=== PATIENT | female | born 1955 | race Caucasian/White ===

== ENCOUNTER 2019-07-19 08:39 | Inpatient (IN) | payer OTHER ==
[~2019-07-19] VITALS: Ht 157.5 cm; Wt 104.4 kg
[2019-07-19 09:00] LABS: BASOPHILS 0.1 % (0-2); EOSINOPHILS 0 % (0-7); HEMATOCRIT 47.8 % (36.0-48.0); HEMOGLOBIN 15.8 g/dL (12-16); IMMATURE GRANULOCYTES 0.4 % (0-5); LYMPHOCYTES 2.7 % (15-50); MCH 30.2 pg (26.0-34.0); MCHC 33.1 g/dL (31.0-37.0); MCV 91.2 fL (80.0-100.0); MEAN PLATELET VOLUME 9.9 fL (7.4-10.4); MONOCYTES 5.7 % (2-11); NEUTROPHILS 91.1 % (40-80); PLATELET COUNT 230 10x3/uL (130-400); RBC 5.24 10x6/uL (4.00-5.40); RDW 12.8 % (11.5-14.5); WBC 17.5 10x3/uL (4.8-10.8)
[2019-07-19 09:36] LABS: ALKALINE PHOSPHATASE 140 U/L (46-116); ALT (SGPT) 22 U/L (10-68); AMYLASE - SERUM 19 U/L (25-115); BILIRUBIN - TOTAL 0.66 mg/dL (0.2-1.3); CALC OSMOLALITY 293 mosm/kg (275-300); CALCIUM 10.5 mg/dL (8.5-10.1); CARBON DIOXIDE 11.8 mmol/L (21.0-32.0); CHLORIDE - SERUM 94 mmol/L (98-107); CREATININE - SERUM 1.2 mg/dL (0.6-1.3); LIPASE 55 U/L (73-393); POTASSIUM - SERUM 4.7 mmol/L (3.5-5.1); PROTEIN - SERUM 10.2 g/dL (6.4-8.2); SODIUM 135 mmol/L (136-145); TROPONIN-I < 0.017 ng/mL (0.000-0.060); UREA NITROGEN 21 mg/dL (7-18); eGFR NON AFRICAN AMERICAN 48 mL/min (90-120)
[2019-07-19 09:40] LABS: GLUCOSE 475 mg/dL (74-106)
--- NOTE | 2019-07-19 09:40 | NUR ---
CRITICAL LAB: GLUCOSE 479 MG/DL DR WATSON NOTIFIED
[2019-07-19 11:14] LABS: APPEARANCE CLEAR (CLEAR); BILIRUBIN NEGATIVE (NEGATIVE); COLOR YELLOW (YELLOW); GLUCOSE 1000 mg/dL (NEGATIVE); KETONE LARGE mg/dL (NEGATIVE); NITRITE NEGATIVE (NEGATIVE); PROTEIN 1+ mg/dL (NEGATIVE); RED CELLS - URINE 0-5 /hpf (0-5); SPECIFIC GRAVITY 1.025 (1.005-1.020); UROBILINOGEN NORMAL (NORMAL); WHITE CELLS - URINE RARE /hpf (NEGATIVE)
[2019-07-19 11:15] LABS: BACTERIA FEW /hpf (NEGATIVE); EPITHELIAL CELLS 0-5 /hpf (0-5)
--- NOTE | 2019-07-19 15:00 | MORECARE ---
CASE MANAGEMENT DISCHARGE SUMMARY PATIENT: ESTELA HILLIARD UNIT: [id number] ADM DATE: 07/19/19 AGE: 63 : 55 SEX: F ROOM/BED: D.2314 AUTHOR: BHUPINDER FERNANDES PHYSICIAN: REFERRING PHYSICIAN: KHAI ARREOLA MD DATE OF SERVICE: 07/19/19 Discharge Plan Patient Name: ESTELA HILLIARD Facility: [facility]:[place] : 1955 Planned Disposition: Anticipated Discharge Date: Discharge Date: Expected LOS: Initial Reviewer: [email or web address] Initial Review Date: 07/19/2019 Generated: 07/19/19 4:00 pm Comments DCP- Discharge Planning Updated by [email or web address]: Coni Coombs on 07/19/19 1:[address] CM met with patient to discuss initial discharge planning. Patient is in agreement to proceed with the assessment with her friend, Hina Camacho present. Verified patient's address and telephone number. Patient is alert/oriented, although drowsy. Stairs/steps: 6, no rails. PCP: Cristal to get established with Dr. Martinez. Pharmacy: [facility]. Diabetic test strips from [facility]. Patient states they have been able to obtain all of their prescribed medications. Patient lives with alone, but will discharge to her friend's home @[address], [place]. HHS: No. DME: No. Patient gives permission to speak with friend. Emergency contact: Hina Camacho [phone]. Patient is Independent with all ADL's, medication management. CM discussed the availability of HH, Rehab, DME services. Patient denies the need for additional services at this time and feels safe discharging to friend's house. Patient denies being hospitalized within the past 30 days, but has had 2 ER visits. Patient denies the use of community resources ASSISTED LIVING COORDINATOR. Transportation at time of discharge: Hina Camacho. Patient Name: ESTELA HILLIARD Page [id number] at 1500 All edits/amendments must be made on the electronic document DICTATION DATE: 07/19/19 1500 FINE ARTS TEACHER: DM 07/19/19 1500 RPT#: [id number] DC DATE: STATUS: ADM IN [facility] [address] [place] [address] END OF REPORT
--- NOTE | 2019-07-19 15:04 | NUR ---
FSBS 456
[2019-07-19 15:50] VITALS: BP 188/92; BMI 40.1
[2019-07-19] MEDS ORDERED: METFORMIN HCL500 M1 PO (15:59)
[2019-07-19 17:00] VITALS: BP 147/85
[2019-07-19 17:37] LABS: ANION GAP 35.5 mmol/L (8-16); CALCIUM 10.4 mg/dL (8.5-10.1); CREATININE - SERUM 1.3 mg/dL (0.6-1.3); MAGNESIUM - SERUM 2.5 mg/dL (1.8-2.4); POTASSIUM - SERUM 4.5 mmol/L (3.5-5.1)
[2019-07-19 18:00] VITALS: BP 152/79
--- NOTE | 2019-07-19 18:01 | NUR ---
PT ASSISTED TO BEDSIDE COMMODE. 600 CC VOID NOTED BLADDER SCAN ADM 84 CC NOTED.
--- NOTE | 2019-07-19 18:36 | NUR ---
PATRIA-- [phone]. TO BE CALLED IN CASE OF EMERGENCY
[2019-07-19 21:40] LABS: CALCIUM 9.4 mg/dL (8.5-10.1); MAGNESIUM - SERUM 2.2 mg/dL (1.8-2.4)
[2019-07-19 21:43] LABS: ANION GAP 24.5 mmol/L (8-16); POTASSIUM - SERUM 3.5 mmol/L (3.5-5.1)
[2019-07-19 23:00] VITALS: BP 152/88
[2019-07-20] VITALS (23 sets, daily range): BP systolic 132–234; BP diastolic 70–139; Ht 157.5 cm; Wt 104.4 kg
[2019-07-20 01:18] LABS: ANION GAP 20.5 mmol/L (8-16); CALCIUM 10.6 mg/dL (8.5-10.1); CREATININE - SERUM 1.2 mg/dL (0.6-1.3)
[2019-07-20 01:19] LABS: CARBON DIOXIDE 18.5 mmol/L (21.0-32.0)
[2019-07-20 05:04] LABS: BASOPHILS 0.1 % (0-2); EOSINOPHILS 0 % (0-7); HEMATOCRIT 43.4 % (36.0-48.0); HEMOGLOBIN 14.6 g/dL (12-16); IMMATURE GRANULOCYTES 0.3 % (0-5); LYMPHOCYTES 3.7 % (15-50); MCH 29.6 pg (26.0-34.0); MCHC 33.6 g/dL (31.0-37.0); MEAN PLATELET VOLUME 9.6 fL (7.4-10.4); MONOCYTES 6.8 % (2-11); NEUTROPHILS 89.1 % (40-80); PLATELET COUNT 196 10x3/uL (130-400); RBC 4.94 10x6/uL (4.00-5.40)
[2019-07-20 05:06] LABS: MCV 87.9 fL (80.0-100.0); WBC 11.9 10x3/uL (4.8-10.8)
[2019-07-20 05:26] LABS: BILIRUBIN - TOTAL 0.26 mg/dL (0.2-1.3); CALCIUM 10.2 mg/dL (8.5-10.1); CARBON DIOXIDE 20.3 mmol/L (21.0-32.0); MAGNESIUM - SERUM 2.1 mg/dL (1.8-2.4); PROTEIN - SERUM 8.3 g/dL (6.4-8.2)
[2019-07-20 05:29] LABS: ANION GAP 17.3 mmol/L (8-16); POTASSIUM - SERUM 3.6 mmol/L (3.5-5.1)
--- NOTE | 2019-07-20 07:15 | NUR ---
REPORT RECEIVED. ASSESSMENT COMPLETE PER FLOW SHEET. VSS. REFER FOR FINDINGS. WILL CONTINUE TO MONITOR
[2019-07-20 08:10] LABS: ANION GAP 17.3 mmol/L (8-16); CALCIUM 10.4 mg/dL (8.5-10.1); CARBON DIOXIDE 20.6 mmol/L (21.0-32.0); CREATININE - SERUM 0.9 mg/dL (0.6-1.3); MAGNESIUM - SERUM 2.1 mg/dL (1.8-2.4); POTASSIUM - SERUM 3.9 mmol/L (3.5-5.1)
--- NOTE | 2019-07-20 09:00 | NUR ---
DR CHRIS AT BEDSIDE GIVEN UPDATE. NEW ORDERS RECEIVED. ADM.
--- NOTE | 2019-07-20 10:40 | NUR ---
HR [address] YOUNG GIVEN UPDATE CARDIZEM AND APRESOLINE ADM 1HR PRIOR. NEW ORDERS RECEIVED. CARDIOLOGY CONSULT ADM.
--- NOTE | 2019-07-20 11:00 | NUR ---
PT ASSISTED UP OOB TO BEDSIDE COMMODE. 250 CC VOID NOTED. BLADDER SCANNER ADM. 300 CC NOTED TO BE IN BLADDER. DR YOUNG GIVEN UPDATE. ORDER FOR FLORES TO BE PLACED
--- NOTE | 2019-07-20 11:13 | NUR ---
FLORES ADM USING STERILE TECHNIQUE. 300 CC IMMEDIATE RETURN NOTED. DR YOUNG GIHavenN UPDATE.ORDER FOR UA ADM.
[2019-07-20 11:45] LABS: UDS - AMPHET NEGATIVE QUAL (NEGATIVE); UDS - BARB NEGATIVE QUAL (NEGATIVE); UDS - BENZO NEGATIVE QUAL (NEGATIVE); UDS - COCAINE NEGATIVE QUAL (NEGATIVE); UDS - OPIATE NEGATIVE QUAL (NEGATIVE); UDS - PCP NEGATIVE QUAL (NEGATIVE); UDS - THC NEGATIVE QUAL (NEGATIVE)
[2019-07-20 11:59] LABS: APPEARANCE SL CLDY (CLEAR); BILIRUBIN NEGATIVE (NEGATIVE); COLOR YELLOW (YELLOW); GLUCOSE 500 mg/dL (NEGATIVE); KETONE MODERATE mg/dL (NEGATIVE); NITRITE NEGATIVE (NEGATIVE); PROTEIN 1+ mg/dL (NEGATIVE); SPECIFIC GRAVITY 1.015 (1.005-1.020); UROBILINOGEN NORMAL (NORMAL)
[2019-07-20 12:00] LABS: BACTERIA MANY /hpf (NEGATIVE); EPITHELIAL CELLS OCC /hpf (0-5); GRANULAR CAST RARE /lpf (NONE SEEN); MUCUS <1+ /lpf (NONE SEEN); RED CELLS - URINE 0-5 /hpf (0-5); WHITE CELLS - URINE 0-5 /hpf (NEGATIVE)
--- NOTE | 2019-07-20 13:20 | NUR ---
PT TO CT AT THIS TIME. AWAITING RESULTS
--- NOTE | 2019-07-20 14:49 | NUR ---
DR YOUNG CALLED GIVEN UPDATE REAGAURDING HEAD CT
--- NOTE | 2019-07-20 16:45 | NUR ---
PT REMOVED FLORES AT THIS TIME.
--- NOTE | 2019-07-20 17:07 | NUR ---
BAM MCINTYRE WITH CARDIOLOGY AT BEDSIDE NEW ORDERS RECEIVED. WILL ADM
--- NOTE | 2019-07-20 21:30 | NUR ---
Received report from MERARY Murillo. Pt is laying in bed at this time. No s/s of distress. Will continue to monitor.
--- NOTE | 2019-07-20 23:00 | NUR ---
Reassessment completed, see flowsheet for details. Pt is laying in bed with eyes closed at this time. No needs voiced. No s/s of distress. Will continue to monitor.
[2019-07-20 23:28] LABS: CALCIUM 9.4 mg/dL (8.5-10.1); CARBON DIOXIDE 21.3 mmol/L (21.0-32.0); CHLORIDE - SERUM 107 mmol/L (98-107); GLUCOSE 115 mg/dL (74-106); POTASSIUM - SERUM 4.1 mmol/L (3.5-5.1); SODIUM 140 mmol/L (136-145)
[2019-07-20 23:29] LABS: CALC OSMOLALITY 279 mosm/kg (275-300); CREATININE - SERUM 0.5 mg/dL (0.6-1.3); UREA NITROGEN 13 mg/dL (7-18); eGFR NON AFRICAN AMERICAN > 90 mL/min (90-120)
[2019-07-21] VITALS (20 sets, daily range): BP systolic 123–166; BP diastolic 65–95
--- NOTE | 2019-07-21 01:00 | NUR ---
Pt is laying in bed with eyes closed. No needs voiced. No s/s of distress. Will continue to monitor.
--- NOTE | 2019-07-21 03:00 | NUR ---
Reassessment completed, see flowsheet for details. Pt denies needs at this time. No s/s of distress noted. Will continue to monitor.
[2019-07-21 03:15] LABS: BASOPHILS 0 % (0-2); EOSINOPHILS 0.1 % (0-7); HEMATOCRIT 39.5 % (36.0-48.0); HEMOGLOBIN 13.5 g/dL (12-16); IMMATURE GRANULOCYTES 0.5 % (0-5); LYMPHOCYTES 9.7 % (15-50); MCH 29.5 pg (26.0-34.0); MCHC 34.2 g/dL (31.0-37.0); MCV 86.2 fL (80.0-100.0); MEAN PLATELET VOLUME 9.6 fL (7.4-10.4); MONOCYTES 11.1 % (2-11); NEUTROPHILS 78.6 % (40-80); RBC 4.58 10x6/uL (4.00-5.40); RDW 13.1 % (11.5-14.5); WBC 9.6 10x3/uL (4.8-10.8)
[2019-07-21 03:24] LABS: PLATELET COUNT 149 10x3/uL (130-400)
[2019-07-21 03:43] LABS: ALBUMIN 2.3 g/dL (3.4-5.0); ALKALINE PHOSPHATASE 82 U/L (46-116); ALT (SGPT) 13 U/L (10-68); BILIRUBIN - TOTAL 0.32 mg/dL (0.2-1.3); CALC OSMOLALITY 274 mosm/kg (275-300); CARBON DIOXIDE 21.4 mmol/L (21.0-32.0); CHLORIDE - SERUM 107 mmol/L (98-107); CREATININE - SERUM 0.5 mg/dL (0.6-1.3); GLUCOSE 90 mg/dL (74-106); MAGNESIUM - SERUM 1.7 mg/dL (1.8-2.4); POTASSIUM - SERUM 3.4 mmol/L (3.5-5.1); SODIUM 138 mmol/L (136-145); UREA NITROGEN 11 mg/dL (7-18); eGFR NON AFRICAN AMERICAN > 90 mL/min (90-120)
[2019-07-21 03:44] LABS: KETONE - SERUM NEGATIVE (NEGATIVE)
--- NOTE | 2019-07-21 05:00 | NUR ---
Pt is laying in bed with eyes closed. Needs are denied at this time. No s/s of distress. Will continue to monitor.
--- NOTE | 2019-07-21 07:06 | NUR ---
REPORT RECIEVED. NO ACUTE DISTRESS. A&O X4. AMBULATES WITH ASSISTANCE. INSULIN DRIP. PALP PULSES BILAT IN ALL EXTREMITIES. VSS. BED RAILS X2. BED LOW AND LOCKED. WILL CONTINUE TO MONITOR
--- NOTE | 2019-07-21 09:28 | NUR ---
Nutrition follow-up: Pt remains NPO Labs reviewed Glucose normal at this time. RDN following.
--- NOTE | 2019-07-21 09:35 | NUR ---
dr link at bedside
--- NOTE | 2019-07-21 09:43 | NUR ---
spoke with family they confirmed date of . stated they needed to set up a password. discussed insulin drip and cardizam drip.
--- NOTE | 2019-07-21 09:47 | NUR ---
DISCUSSED WITH CARDIOLOGY. OFF CARDIZAM DRIP. IF HR GOES ABOVE 100 AGAIN, WILL LIKELY START CARDIZAM PO.
--- NOTE | 2019-07-21 09:50 | NUR ---
PATIENT IS ALERT AND ORIENTED. OFF CARDIZAM DRIP. STILL ON INSULIN DRIP. PATIENT IS HEAVY SLEEPER. AWAKENS WHEN SPOKEN TO. FOLLOWS COMMANDS. DOES NOT INITIATE CONVERSATIONS.
--- NOTE | 2019-07-21 10:27 | NUR ---
dr link stated patient could transfer out at the 24 hour keila of anion gap being closed.
--- NOTE | 2019-07-21 11:54 | NUR ---
PATIENT WONDERING WHAT THE PLAN WAS. EXPLAINED SHE WOULD BE A TRANSFER AT 11 PM AFTER THE 24 HOUR PERIOD OF BEING ON THE INSULIN DRIP WITH HER ANION GAP BEING CLOSED.
--- NOTE | 2019-07-21 13:26 | NUR ---
patient tray ordered. pateint is alert and oriented. denies needs and pain. easily aroused when sleeping. willc ontinue to monitor
--- NOTE | 2019-07-21 14:26 | NUR ---
PATIENT VOIDED. EATING TRAY. AMBULATED FINE.
[2019-07-21 15:22] LABS: MAGNESIUM - SERUM 1.7 mg/dL (1.8-2.4)
--- NOTE | 2019-07-21 15:46 | NUR ---
patient resting. no changes from shift assessment. patient stating shes ready to go home. no acute distress. will continue to monitor. see adl's
--- NOTE | 2019-07-21 16:58 | NUR ---
SPOKE WITH LENA ACTIVITY THERAPY TEACHER FROM CARDIOLOGY ABOUT HR BEING IN 1 TEENS. ORDERS RECIEVED.
--- NOTE | 2019-07-21 17:00 | NUR ---
patient stated she had a headache. tylenol given per mar
--- NOTE | 2019-07-21 19:35 | NUR ---
SHIFT ASSESSMENT COMPLETED SEE FLOWSHEET. PT STATES SHE IS NOT CURRENTLY IN ANY PAIN. INSULIN GTT INFUSING AT THIS TIME WITH FLUIDS. VSS CPOC
--- NOTE | 2019-07-21 21:25 | NUR ---
PT RECEIVED HS MEDICATIONS AT THIS TIME, DENIES NEEDS
--- NOTE | 2019-07-21 23:00 | NUR ---
INSULIN DRIP DC'D AT THIS TIME PER WRITTEN ORDERS
--- NOTE | 2019-07-21 23:10 | NUR ---
PT REQUESTED PRN MEDICATION FOR HEADACHE, SEE EMAR FOR ADMINISTRATION.
--- NOTE | 2019-07-22 01:07 | NUR ---
PT RECEIVED HS MEDICATIONS AT THIS TIME, VSS CPOC
--- NOTE | 2019-07-22 01:09 | NUR ---
PT RESTING COMFORTABLY DENIES NEEDS
--- NOTE | 2019-07-22 02:56 | NUR ---
PT UP TO BEDSIDE COMMODE, INDEPENDANT AMBULATION.
[2019-07-22 04:00] VITALS: BP 148/83
[2019-07-22 04:24] LABS: BASOPHILS 0 % (0-2); EOSINOPHILS 0 % (0-7); HEMATOCRIT 37.9 % (36.0-48.0); HEMOGLOBIN 12.7 g/dL (12-16); IMMATURE GRANULOCYTES 0.3 % (0-5); LYMPHOCYTES 8.1 % (15-50); MCH 29.1 pg (26.0-34.0); MCHC 33.5 g/dL (31.0-37.0); MCV 86.7 fL (80.0-100.0); MEAN PLATELET VOLUME 9.8 fL (7.4-10.4); MONOCYTES 9.9 % (2-11); NEUTROPHILS 81.7 % (40-80); PLATELET COUNT 122 10x3/uL (130-400); RBC 4.37 10x6/uL (4.00-5.40); RDW 13.3 % (11.5-14.5)
[2019-07-22 04:40] LABS: ALBUMIN 2.3 g/dL (3.4-5.0); ALKALINE PHOSPHATASE 81 U/L (46-116); ALT (SGPT) 12 U/L (10-68); BILIRUBIN - TOTAL 0.52 mg/dL (0.2-1.3); CALCIUM 8.9 mg/dL (8.5-10.1); CARBON DIOXIDE 21.3 mmol/L (21.0-32.0); CHLORIDE - SERUM 101 mmol/L (98-107); CREATININE - SERUM 0.5 mg/dL (0.6-1.3); MAGNESIUM - SERUM 1.7 mg/dL (1.8-2.4); POTASSIUM - SERUM 4.6 mmol/L (3.5-5.1); PROTEIN - SERUM 6.7 g/dL (6.4-8.2); SODIUM 133 mmol/L (136-145); eGFR NON AFRICAN AMERICAN > 90 mL/min (90-120)
[2019-07-22 04:41] LABS: CALC OSMOLALITY 271 mosm/kg (275-300); GLUCOSE 244 mg/dL (74-106); UREA NITROGEN 7 mg/dL (7-18)
[2019-07-22 07:00] VITALS: BP 176/86
--- NOTE | 2019-07-22 07:00 | NUR ---
BEDSIDE REPORT RECEIVED. SHIFT ASSESSMENT COMPLETED PER FLOWSHEET, SEE FLOWSHEET FOR INFORMATION. PT DENIES ANY ACUTE NEEDS OR DISTRESS AT THIS TIME, ICE WATER GIVEN PER REQUEST. CALL LIGHT IN REACH. WILL CONT TO MONITOR.
--- NOTE | 2019-07-22 09:00 | NUR ---
0900 MEDICATIONS GIVEN. BREAKFAST GIVEN. WILL CONT TO PANCHO.
[2019-07-22 11:00] VITALS: BP 135/73
--- NOTE | 2019-07-22 11:00 | NUR ---
PT RESTING IN BED WITH EYES CLOSED. WILL CONT TO MONITOR.
[2019-07-22] MEDS ORDERED: BASAGLAR K100 UNIT/1 SC (11:11)
[2019-07-22] MEDS ORDERED: TOPROL XL50 MG PO (11:18)
[2019-07-22] MEDS ORDERED: CARDIZEM60 MG PO (11:18)
--- NOTE | 2019-07-22 13:00 | NUR ---
PT FAMILY AT BEDSIDE. WILL CONT TO MONITOR.
--- NOTE | 2019-07-22 15:00 | NUR ---
PT DISCHARGED TO FRIENDS CAR VIA WHEELCHAIR. DISCHARGE TEACHING GIVEN, PT DENIED ANY QUESTIONS OR CONCERNS. WILL CONT TO MONITOR.
--- NOTE | 2019-07-23 15:09 | MORECARE ---
CASE MANAGEMENT DISCHARGE SUMMARY PATIENT: ESTELA HILLIARD UNIT: [id number] ADM DATE: 07/19/19 AGE: 63 : 55 SEX: F ROOM/BED: D.2314 AUTHOR: DOM,DOC PHYSICIAN: REFERRING PHYSICIAN: KHAI ARREOLA MD DATE OF SERVICE: 07/23/19 Discharge Plan Patient Name: ESTELA HILLIARD Facility: [facility]:[place] : 1955 Planned Disposition: Anticipated Discharge Date: Discharge Date: 07/22/2019 Expected LOS: Initial Reviewer: [email or web address] Initial Review Date: 07/19/2019 Generated: 07/23/19 4:08 pm DCP- Discharge Planning Updated by [email or web address]: Coni Coombs on 07/19/19 1:[address] CM met with patient to discuss initial discharge planning. Patient is in agreement to proceed with the assessment with her friend, Hina Camacho present. Verified patient's address and telephone number. Patient is alert/oriented, although drowsy. Stairs/steps: 6, no rails. PCP: Cristal to get established with Dr. Martinez. Pharmacy: [facility]. Diabetic test strips from [facility]. Patient states they have been able to obtain all of their prescribed medications. Patient lives with alone, but will discharge to her friend's home @[address], [place]. HHS: No. DME: No. Patient gives permission to speak with friend. Emergency contact: Hina Camacho [phone]. Patient is Independent with all ADL's, medication management. CM discussed the availability of HH, Rehab, DME services. Patient denies the need for additional services at this time and feels safe discharging to friend's house. Patient denies being hospitalized within the past 30 days, but has had 2 ER visits. 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 Transportation at time of discharge: Hina Camacho. DCPIA - Discharge Planning Initial Assessment Updated by [email or web address]: Briseyda Hart on 07/23/19 3:03 pm * Is the patient Alert and Oriented? Yes * How many steps to enter\exit or inside your home? * PCP DES * Pharmacy [facility] * Preadmission Environment Home with Family * ADLs Independent * Equipment Glucometer * List name and contact numbers for known caregivers / representatives who currently or will assist patient after discharge: DANIELLA GRANT - DAUGHTER - [phone] * Verbal permission to speak to the caregivers and representatives has been obtained from the patient. Yes * Community resources currently utilized None * Additional services required to return to the preadmission environment? No * Can the patient safely return to the preadmission environment? Yes * Has this patient been hospitalized within the prior 30 days at any hospital? Yes Last DP export: 07/19/19 2:00 pm Patient Name: ESTELA HILLIARD Page 47740 at 1509 All edits/amendments must be made on the electronic document DICTATION DATE: 07/23/19 1508 SALESPERSON HEARING AIDS: KAREN 07/23/19 1508 RPT#: [id number] DC DATE:07/22/19 STATUS: DIS IN [facility] [address] [place] [address] END OF REPORT
== END 2019-07-22 15:00 | disposition home or self-care (01) | DRG 638 ==
LOC: D.ER 08:39 → D.ICU 12:36
PROVIDERS: Family Medicine; ADMIT Family Medicine; ATTEND Family Medicine
DX: E11.10 Type 2 diabetes mellitus with ketoacidosis without coma (principal); I48.4 Atypical atrial flutter; C85.90 Non-Hodgkin lymphoma, unspecified, unspecified site; N39.0 Urinary tract infection, site not specified; E83.52 Hypercalcemia; F41.9 Anxiety disorder, unspecified; C67.9 Malignant neoplasm of bladder, unspecified; R00.0 Tachycardia, unspecified; I16.0 Hypertensive urgency; R40.2244 Coma scale, best verbal response, confused conversation, 24 hours or more after hospital admission; R40.2364 Coma scale, best motor response, obeys commands, 24 hours or more after hospital admission; R40.2134 Coma scale, eyes open, to sound, 24 hours or more after hospital admission; E11.65 Type 2 diabetes mellitus with hyperglycemia

== ENCOUNTER 2019-07-24 08:38 | Inpatient (IN) | payer OTHER ==
[~2019-07-24] VITALS: Ht 157.5 cm; Wt 83.1 kg
[~2019-07-24 08:38] MED LIST: BASAGLAR K100 UNIT/1 SC; CARDIZEM60 MG PO; METFORMIN HCL500 M1 PO; TOPROL XL50 MG PO
[2019-07-24 09:21] LABS: BASOPHILS 0.1 % (0-2); EOSINOPHILS 0.1 % (0-7); HEMATOCRIT 37.2 % (36.0-48.0); HEMOGLOBIN 12.5 g/dL (12-16); LYMPHOCYTES 7.1 % (15-50); MCH 29.1 pg (26.0-34.0); MCHC 33.6 g/dL (31.0-37.0); MCV 86.5 fL (80.0-100.0); MEAN PLATELET VOLUME 9.5 fL (7.4-10.4); MONOCYTES 11.5 % (2-11); NEUTROPHILS 77.2 % (40-80); RDW 12.9 % (11.5-14.5)
[2019-07-24 09:22] LABS: PLATELET COUNT 155 10x3/uL (130-400)
[2019-07-24 09:26] LABS: APTT 28.1 SECONDS (22.8-39.4); CALC OSMOLALITY 277 mosm/kg (275-300); CALCIUM 8.3 mg/dL (8.5-10.1); CHLORIDE - SERUM 99 mmol/L (98-107); CREATININE - SERUM 0.6 mg/dL (0.6-1.3); GLUCOSE 277 mg/dL (74-106); INR 1.19 (0.85-1.17); POTASSIUM - SERUM 3.5 mmol/L (3.5-5.1); PROTIME 15.1 SECONDS (11.6-15.0); SODIUM 135 mmol/L (136-145); UREA NITROGEN 7 mg/dL (7-18); eGFR NON AFRICAN AMERICAN > 90 mL/min (90-120)
[2019-07-24 09:41] LABS: ALBUMIN 2.2 g/dL (3.4-5.0); ALKALINE PHOSPHATASE 100 U/L (46-116); ALT (SGPT) 16 U/L (10-68); BILIRUBIN - TOTAL 0.82 mg/dL (0.2-1.3); CKMB 0.1 U/L (0.0-3.6); CREATINE KINASE 12 UL (21-215); PROTEIN - SERUM 6.9 g/dL (6.4-8.2)
[2019-07-24 09:43] LABS: TROPONIN-I < 0.017 ng/mL (0.000-0.060)
[2019-07-24 09:43] LABS: APPEARANCE HAZY (CLEAR); COLOR STRAW (YELLOW); GLUCOSE 500 mg/dL (NEGATIVE); NITRITE POSITIVE (NEGATIVE); PROTEIN NEGATIVE (NEGATIVE)
[2019-07-24 09:44] LABS: BILIRUBIN NEGATIVE (NEGATIVE); KETONE MODERATE mg/dL (NEGATIVE); UROBILINOGEN NORMAL (NORMAL)
[2019-07-24 09:45] LABS: BACTERIA MODERATE /hpf (NEGATIVE); RED CELLS - URINE 0-5 /hpf (0-5)
[2019-07-24 09:46] LABS: EPITHELIAL CELLS 0-5 /hpf (0-5)
[2019-07-24 09:54] LABS: AMYLASE - SERUM 21 U/L (25-115); LIPASE 87 U/L (73-393)
[2019-07-24 10:18] VITALS: BP 182/78
--- NOTE | 2019-07-24 12:21 | MORECARE ---
CASE MANAGEMENT DISCHARGE SUMMARY PATIENT: ESTELA HILLIARD UNIT: [id number] ADM DATE: 07/24/19 AGE: 63 : 55 SEX: F ROOM/BED: D.2104 AUTHOR: DOM,DOC PHYSICIAN: REFERRING PHYSICIAN: JAILYN WU MD DATE OF SERVICE: 07/24/19 Discharge Plan Patient Name: ESTELA HILLIARD Facility: [facility]:[place] : 1955 Planned Disposition: Anticipated Discharge Date: Discharge Date: Expected LOS: Initial Reviewer: [email or web address] Initial Review Date: 07/24/2019 Generated: 07/24/19 1:21 pm Comments DCP- Discharge Planning Updated by [email or web address]: Coni Coombs on 07/24/19 11:[address] CM met with patient to discuss initial discharge planning. Patient is in agreement to proceed with the assessment. Patient is drowsy, but answers questions. Falls asleep repeatedly during assessment. Stairs/steps: unknown at this time. PCP: Patient has not attempted to make appointment with Dr. Martinez as yet. Pharmacy: [facility]. [facility] for diabetic test strips and on weekends [facility]. Patient states she was given an Insulin pen upon DC, but DID NOT PROCESS ARCHITECT NEEDLES FOR PEN. Patient lives between her daughter's home, [address] (no phone # and Hina Camacho's home (friend) #[phone]. HHS: Did not want to discuss HHS, Rehab or DME. Patient gives permission to speak with family members/care givers. Emergency contact: Hina Camacho [phone].Patient is Independent with all ADL's, medication management. Patient denies the need for additional services at this time and feels safe returning to previous environment. Patient was discharged from hospital 07/22/2019. 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 Transportation at time of discharge: Asaf Camacho (friend). Per patient's request, CM notified [place] hospital readmission and of patient's room number. CM will assist as needed for DC plans PRN. DCPIA - Discharge Planning Initial Assessment Updated by [email or web address]: Coni Coombs on 07/24/19 12:21 pm * Is the patient Alert and Oriented? Yes * How many steps to enter\exit or inside your home? Unknown * PCP Does not have a PCP at this time. Patient would like to establish with [facility]. * [facility] for diabetic test strips. [facility] '[facility]. * Preadmission Environment Home with Family * ADLs Independent * Equipment None * Other Equipment Glucometer * List name and contact numbers for known caregivers / representatives who currently or will assist patient after discharge: Hina Camacho (friend) [phone]. [address] Bryant unknown number. * Verbal permission to speak to the caregivers and representatives has been obtained from the patient. Yes * Community resources currently utilized None * Please name any agencies selected above. NA * Additional services required to return to the preadmission environment? Yes * Can the patient safely return to the preadmission environment? Yes * Has this patient been hospitalized within the prior 30 days at any hospital? Yes Patient Name: ESTELA HILLIARD Page 48633 at 1221 All edits/amendments must be made on the electronic document DICTATION DATE: 07/24/19 1221 CHAIR INSPECTOR AND LEVELER: KAREN 07/24/19 1221 RPT#: [id number] DC DATE: STATUS: ADM IN [facility] [address] [place] [address] END OF REPORT
--- NOTE | 2019-07-24 13:58 | NUR ---
PT ARRIVED VIA WHEELCHAIR TO ROOM, ALERT AND ORIENTED UP WITH STANDBY ASSIST. CC/O OF LEFT SIDE ABD PAIN. NO FAMILY PRESENT AT BEDSIDE, ALL QUESTIONS ANSWERED TO THE BEST OFMY ABILITY.C L IN REACH, SRX2.
[2019-07-24 15:22] VITALS: BP 207/103
[2019-07-24 15:28] VITALS: BP 172/78; BMI 33.0
[2019-07-24 20:00] VITALS: BP 182/73
--- NOTE | 2019-07-24 20:08 | NUR ---
REPORT RECIEVED AND ROUNDING COMPLETE. PATIENT LAYING BED IN LOW FOWLERS, PATIENT REQUESTING PAIN MEDICATION, REPORTS PAIN A 5/10. WILL TREAT PER MAR. PATIENT STATES SHE HAS NO NEEDS AT THIS TIME. PATIENT HAS 2 PIV ONE IN THE RIGHT HAND AND ONE IN THE LEFT HAND. BOTH PIVS APPEAR TO BE PATENT AT THIS TIME. PATIENT ON ROOM AIR. PATIENT SHOWS NO S/SX OF DISTRESS AT THIS TIME. CALL LIGHT WITHIN REACH AND BED IN LOWEST LOCKED POSITION.
[2019-07-25] VITALS: BP 160/85
--- NOTE | 2019-07-25 02:21 | NUR ---
I have reviewed this patient and I concur with the Shift Assessment completed by the Licensed Practical Nurse today this shift.
[2019-07-25 04:00] VITALS: BP 154/66
[2019-07-25 06:14] LABS: BASOPHILS 0.1 % (0-2); EOSINOPHILS 0.3 % (0-7); HEMATOCRIT 34.8 % (36.0-48.0); HEMOGLOBIN 11.3 g/dL (12-16); IMMATURE GRANULOCYTES 4.2 % (0-5); LYMPHOCYTES 11.8 % (15-50); MCH 28.5 pg (26.0-34.0); MCHC 32.5 g/dL (31.0-37.0); MCV 87.9 fL (80.0-100.0); MONOCYTES 12.3 % (2-11); NEUTROPHILS 71.3 % (40-80); PLATELET COUNT 173 10x3/uL (130-400); RBC 3.96 10x6/uL (4.00-5.40); RDW 13.1 % (11.5-14.5); WBC 10.9 10x3/uL (4.8-10.8)
--- NOTE | 2019-07-25 07:20 | NUR ---
RECIEVE REPORT. RESTING IN BED. ALERT AND ORIENTED X4. DENIES ANY NEEDS. ADMINISTER TYLENOL ORDERED FOR TEMP 100.0. CONTINUE PLAN OF CARE AND SAFETY PRECAUTIONS.
[2019-07-25 07:38] LABS: ALBUMIN 1.9 g/dL (3.4-5.0); ALKALINE PHOSPHATASE 87 U/L (46-116); ALT (SGPT) 13 U/L (10-68); BILIRUBIN - TOTAL 0.44 mg/dL (0.2-1.3); CALC OSMOLALITY 270 mosm/kg (275-300); CALCIUM 8.1 mg/dL (8.5-10.1); CARBON DIOXIDE 28.9 mmol/L (21.0-32.0); CHLORIDE - SERUM 98 mmol/L (98-107); CREATININE - SERUM 0.5 mg/dL (0.6-1.3); MAGNESIUM - SERUM 1.6 mg/dL (1.8-2.4); PHOSPHOROUS 2.3 mg/dL (2.5-4.9); POTASSIUM - SERUM 3.1 mmol/L (3.5-5.1); PROTEIN - SERUM 6.4 g/dL (6.4-8.2); SODIUM 134 mmol/L (136-145); UREA NITROGEN 6 mg/dL (7-18); eGFR NON AFRICAN AMERICAN > 90 mL/min (90-120)
[2019-07-25 07:41] LABS: GLUCOSE 184 mg/dL (74-106)
[2019-07-25 07:47] LABS: KETONE - SERUM NEGATIVE (NEGATIVE)
[2019-07-25 07:58] VITALS: BP 164/74
[2019-07-25 11:37] VITALS: BP 137/62
[2019-07-25 15:02] VITALS: Ht 157.5 cm; Wt 83.1 kg
[2019-07-25 15:42] VITALS: BP 124/64
--- NOTE | 2019-07-25 19:04 | NUR ---
BED LOW AND LOCKED CALL LIGHT WITH PT EXAM FOUND THAT IV TO RT HAND WAS OUT CATH INTACT AND NO BLEEDING
[2019-07-25 20:27] VITALS: BP 153/71
[2019-07-26 00:56] VITALS: BP 131/71
[2019-07-26 05:19] VITALS: BP 165/84
[2019-07-26 06:07] LABS: BASOPHILS 0.1 % (0-2); EOSINOPHILS 0.5 % (0-7); HEMATOCRIT 34.1 % (36.0-48.0); HEMOGLOBIN 11.1 g/dL (12-16); IMMATURE GRANULOCYTES 5.1 % (0-5); LYMPHOCYTES 13.9 % (15-50); MCH 28.3 pg (26.0-34.0); MCHC 32.6 g/dL (31.0-37.0); MEAN PLATELET VOLUME 9.9 fL (7.4-10.4); MONOCYTES 11.5 % (2-11); NEUTROPHILS 68.9 % (40-80); PLATELET COUNT 194 10x3/uL (130-400); RBC 3.92 10x6/uL (4.00-5.40); RDW 13.1 % (11.5-14.5); WBC 9.3 10x3/uL (4.8-10.8)
[2019-07-26 06:52] LABS: CALCIUM 8.2 mg/dL (8.5-10.1); CARBON DIOXIDE 30.1 mmol/L (21.0-32.0); CHLORIDE - SERUM 100 mmol/L (98-107); CREATININE - SERUM 0.5 mg/dL (0.6-1.3); MAGNESIUM - SERUM 1.7 mg/dL (1.8-2.4); SODIUM 137 mmol/L (136-145); UREA NITROGEN 5 mg/dL (7-18); eGFR NON AFRICAN AMERICAN > 90 mL/min (90-120)
[2019-07-26 06:55] LABS: CALC OSMOLALITY 272 mosm/kg (275-300); GLUCOSE 129 mg/dL (74-106); PHOSPHOROUS 2.9 mg/dL (2.5-4.9)
[2019-07-26 06:56] LABS: POTASSIUM - SERUM 2.8 mmol/L (3.5-5.1)
--- NOTE | 2019-07-26 07:06 | MORECARE ---
CASE MANAGEMENT DISCHARGE SUMMARY PATIENT: ESTELA HILLIARD UNIT: [id number] ADM DATE: 07/24/19 AGE: 63 : 55 SEX: F ROOM/BED: D.2108 AUTHOR: DOM,DOC PHYSICIAN: REFERRING PHYSICIAN: JAILYN WU MD DATE OF SERVICE: 07/26/19 Discharge Plan Patient Name: ESTELA HILLIARD Facility: [facility]:[place] : 1955 Planned Disposition: Home Anticipated Discharge Date: Discharge Date: Expected LOS: Initial Reviewer: [email or web address] Initial Review Date: 07/24/2019 Generated: 07/26/19 8:05 am DCP- Discharge Planning Updated by [email or web address]: Coni Coombs on 07/24/19 11:[address] CM met with patient to discuss initial discharge planning. Patient is in agreement to proceed with the assessment. Patient is drowsy, but answers questions. Falls asleep repeatedly during assessment. Stairs/steps: unknown at this time. PCP: Patient has not attempted to make appointment with Dr. Martinez as yet. Pharmacy: [facility]. [facility] for diabetic test strips and on weekends [facility]. Patient states she was given an Insulin pen upon DC, but DID NOT NEURODIAGNOSTIC TECHNOLOGIST NEEDLES FOR PEN. Patient lives between her daughter's home, [address] (no phone # and Hina Camacho's home (friend) #[phone]. HHS: Did not want to discuss HHS, Rehab or DME. Patient gives permission to speak with family members/care givers. Emergency contact: Hina Camacho [phone].Patient is Independent with all ADL's, medication management. Patient denies the need for additional services at this time and feels safe returning to previous environment. Patient was discharged from hospital 07/22/2019. 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 Transportation at time of discharge: Asaf Camacho (friend). Per patient's request, CM notified [place] hospital readmission and of patient's room number. CM will assist as needed for DC plans PRN. DCPIA - Discharge Planning Initial Assessment Updated by [email or web address]: Coni Coombs on 07/24/19 12:21 pm * Is the patient Alert and Oriented? Yes * How many steps to enter\exit or inside your home? Unknown * PCP Does not have a PCP at this time. Patient would like to establish with [facility] Paz. * Pharmacy [facility]. [facility] for diabetic test strips. [facility]s 's [facility]. * Preadmission Environment Home with Family * ADLs Independent * Equipment None * Other Equipment Glucometer * List name and contact numbers for known caregivers / representatives who currently or will assist patient after discharge: Hina Camacho (friend) [phone]. Jackelyn Bryant unknown number. * Verbal permission to speak to the caregivers and representatives has been obtained from the patient. Yes * Community resources currently utilized None * Please name any agencies selected above. NA * Additional services required to return to the preadmission environment? Yes * Can the patient safely return to the preadmission environment? Yes * Has this patient been hospitalized within the prior 30 days at any hospital? Yes Last DP export: 07/24/19 11:21 a Patient Name: ESTELA HILLIARD Page 07690 at 0706 All edits/amendments must be made on the electronic document DICTATION DATE: 07/26/19704 ASSISTANT TENNIS COACH: KARNE 07/26/19704 RPT#: [id number] DC DATE: STATUS: ADM IN [facility] [address] [place] [address] END OF REPORT
[2019-07-26 07:18] LABS: KETONE - SERUM NEGATIVE (NEGATIVE)
[2019-07-26 10:38] VITALS: BP 181/89
[2019-07-26 15:26] VITALS: BP 128/68
[2019-07-26 18:25] VITALS: BP 145/79
--- NOTE | 2019-07-26 19:15 | NUR ---
REPORT RECEIVED, WILL CONTINUE POC. PATIENT IS AAOX4, LYING ON LEFT SIDE. NO S/S OF DISTRESS OBSERVED AT THIS TIME, RR EVEN AND UNLABORED ON 2L O2 VIA NC. PIV TO LT HAND INFUSING NS @75ML/HR. PATIENT DENIES NEEDS AT THIS TIME. CL IN REACH, BED LOCKED AND LOWERED. AIRBORNE PRECAUTIONS FOLLOWED. WILL CTM.
[2019-07-26 20:24] VITALS: BP 138/82
--- NOTE | 2019-07-26 22:00 | NUR ---
PATIENT IV OCCLUDED, NOT FLUSHING. DC'D IV WITH CATH TIP INTACT, COVERED SITE WITH BANDAID. RESITED PIV TO LT AC WITH 20G IV X1 ATTEMPT, GOOD BLOOD RETURN, FLUSHED WELL. IV FLUIDS RESTARTED NS@75ML/HR.
[2019-07-27 00:22] VITALS: BP 135/55
--- NOTE | 2019-07-27 00:52 | NUR ---
FSBS 164, PT REFUSED INSULIN
[2019-07-27 06:28] LABS: CALC OSMOLALITY 278 mosm/kg (275-300); CALCIUM 7.8 mg/dL (8.5-10.1); CARBON DIOXIDE 30.5 mmol/L (21.0-32.0); CHLORIDE - SERUM 101 mmol/L (98-107); CREATININE - SERUM 0.5 mg/dL (0.6-1.3); GLUCOSE 172 mg/dL (74-106); MAGNESIUM - SERUM 1.8 mg/dL (1.8-2.4); PHOSPHOROUS 3.3 mg/dL (2.5-4.9); POTASSIUM - SERUM 3.2 mmol/L (3.5-5.1); SODIUM 139 mmol/L (136-145); UREA NITROGEN 5 mg/dL (7-18); eGFR NON AFRICAN AMERICAN > 90 mL/min (90-120)
[2019-07-27 07:28] LABS: BASOPHILS 0 % (0-2); EOSINOPHILS 0.8 % (0-7); HEMOGLOBIN 10.4 g/dL (12-16); IMMATURE GRANULOCYTES 3.9 % (0-5); LYMPHOCYTES 17.3 % (15-50); MCH 28.5 pg (26.0-34.0); MCHC 32.5 g/dL (31.0-37.0); MCV 87.7 fL (80.0-100.0); MEAN PLATELET VOLUME 9.7 fL (7.4-10.4); MONOCYTES 10.3 % (2-11); NEUTROPHILS 67.7 % (40-80); PLATELET COUNT 230 10x3/uL (130-400); RBC 3.65 10x6/uL (4.00-5.40); RDW 13.2 % (11.5-14.5); WBC 7.2 10x3/uL (4.8-10.8)
--- NOTE | 2019-07-27 07:37 | NUR ---
PATEINT RESTING IN BED WITH EYES CLOSED. IV TO THE LEFT AC IS INFUSING WITH NO REDNESS AND OR TENDERNESS. NO O2 IS NOTED AT THIS TIME. BED IS IN LOW POSITION AND CALL LIGHT IS IN REACH. PATIENT DENIES ANY PAIN AND OR NEEDS AT THIS TIME
--- NOTE | 2019-07-27 07:45 | MORECARE ---
CASE MANAGEMENT DISCHARGE SUMMARY PATIENT: ESTELA HILLIARD UNIT: [id number] ADM DATE: 07/24/19 AGE: 63 : 55 SEX: F ROOM/BED: D.2105 AUTHOR: DOM,DOC PHYSICIAN: REFERRING PHYSICIAN: JAILYN WU MD DATE OF SERVICE: 07/27/19 Discharge Plan Patient Name: ESTELA HILLIARD Facility: [facility]:[place] : 1955 Planned Disposition: Home Anticipated Discharge Date: Discharge Date: Expected LOS: Initial Reviewer: [email or web address] Initial Review Date: 07/24/2019 Generated: 07/27/19 8:45 am DCP- Discharge Planning Updated by [email or web address]: Coni Coombs on 07/24/19 11:[address] CM met with patient to discuss initial discharge planning. Patient is in agreement to proceed with the assessment. Patient is drowsy, but answers questions. Falls asleep repeatedly during assessment. Stairs/steps: unknown at this time. PCP: Patient has not attempted to make appointment with Dr. Martinez as yet. Pharmacy: [facility]. [facility] for diabetic test strips and on weekends [facility]. Patient states she was given an Insulin pen upon DC, but DID NOT FOUNDRY WORKER NEEDLES FOR PEN. Patient lives between her daughter's home, [address] (no phone # and Hina Camacho's home (friend) #[phone]. HHS: Did not want to discuss HHS, Rehab or DME. Patient gives permission to speak with family members/care givers. Emergency contact: Hina Camacho [phone].Patient is Independent with all ADL's, medication management. Patient denies the need for additional services at this time and feels safe returning to previous environment. Patient was discharged from hospital 07/22/2019. 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 Transportation at time of discharge: Asaf Camacho (friend). Per patient's request, CM notified [place] hospital readmission and of patient's room number. CM will assist as needed for DC plans PRN. DCPIA - Discharge Planning Initial Assessment Updated by [email or web address]: Coni Coombs on 07/24/19 12:21 pm * Is the patient Alert and Oriented? Yes * How many steps to enter\exit or inside your home? Unknown * PCP Does not have a PCP at this time. Patient would like to establish with [facility] Paz. * Pharmacy [facility]. [facility] for diabetic test strips. 's 's [facility]. * Preadmission Environment Home with Family * ADLs Independent * Equipment None * Other Equipment Glucometer * List name and contact numbers for known caregivers / representatives who currently or will assist patient after discharge: Hina Camacho (friend) [phone]. Jackelyn Bryant unknown number. * Verbal permission to speak to the caregivers and representatives has been obtained from the patient. Yes * Community resources currently utilized None * Please name any agencies selected above. NA * Additional services required to return to the preadmission environment? Yes * Can the patient safely return to the preadmission environment? Yes * Has this patient been hospitalized within the prior 30 days at any hospital? Yes Last DP export: 07/26/19 6:05 a Patient Name: ESTELA HILLIARD Page [id number] at 0745 All edits/amendments must be made on the electronic document DICTATION DATE: 07/27/19744 LINE LEADER: KAREN 07/27/19744 RPT#: [id number] DC DATE: STATUS: ADM IN [facility] [address] [place] [address] END OF REPORT
[2019-07-27 09:48] VITALS: BP 140/95
--- NOTE | 2019-07-27 13:22 | MORECARE ---
CASE MANAGEMENT DISCHARGE SUMMARY PATIENT: ESTELA HILLIARD UNIT: [id number] ADM DATE: 07/24/19 AGE: 63 : 55 SEX: F ROOM/BED: D.2106 AUTHOR: DOM,DOC PHYSICIAN: REFERRING PHYSICIAN: JAILYN WU MD DATE OF SERVICE: 07/27/19 Discharge Plan Patient Name: ESTELA HILLIARD Facility: [facility]:[place] : 1955 Planned Disposition: Home Anticipated Discharge Date: Discharge Date: Expected LOS: Initial Reviewer: [email or web address] Initial Review Date: 07/24/2019 Generated: 07/27/19 2:21 pm Comments DCP- Discharge Planning Updated by [email or web address]: Gutierrez Wheeler on 07/27/19 12:[address] Patient Name: ESTELA HILLIARD Encounter No: [id number] : 1955 Primary [facility] Anticipated DC Date: Planned Disposition: Home DCP follow-up note: CM MET WITH PT IN ROOM TO DISCUSS DISCHARGE NEEDS AND PLANNING. CM DISCUSSED AVAILABILITY OF HOME HEALTH, REHAB SERVICES AND MEDICAL EQUIPMENT. PT DENIES DISCHARGE NEEDS. DAUGHTER TO TRANSPORT HOME AT DISCHARGE. CM ASKED ABOUT INSULIN NEEDLES FOR THE PEN, PT STATES SHE HAD NEVER USED AN INSULIN PEN AND WHEN PICKING IT UP AT PHARMACY, SHE DID NOT KNOW SHE NEEDED NEEDLES TO GO WITH IT. PT REPORTS ABILITY TO GET SUPPLIES. PT STATES SHE LOST HER GLUCOMETER WHEN MOVING TO HER DAUGHTERS HOME. SHE WILL NEED A NEW PRESCRIPTION FOR METER AND LANCET DEVICE. CM TO FOLLOW AND ASSIST NEEDED. PT PLANS TO DISCHARGE HOME WITH DAUGHTER, CAN FILL MEDICATIONS BUT WILL NEED PRESCRIPTION FOR NEW GLUCOMETER AND LANCET DEVICE FOR DISCHARGE HOME. Gutierrez Wheeler, CASE MANAGEMENT DCP- Discharge Planning Updated by [id number]: Coni Coombs on 07/24/19 11:[address] CM met with patient to discuss initial discharge planning. Patient is in agreement to proceed with the assessment. Patient is drowsy, but answers questions. Falls asleep repeatedly during assessment. Stairs/steps: unknown at this time. PCP: Patient has not attempted to make appointment with Dr. Martinez as yet. Pharmacy: [facility]ont. [facility] for diabetic test strips and on weekends [facility]. Patient states she was given an Insulin pen upon DC, but DID NOT CENTER HUMAN RESOURCES MANAGER NEEDLES FOR PEN. Patient lives between her daughter's home, Jackelyn Bryant (no phone # and Hina Camacho's home (friend) #[phone]. HHS: Did not want to discuss HHS, Rehab or DME. Patient gives permission to speak with family members/care givers. Emergency contact: Hina Camacho [phone].Patient is Independent with all ADL's, medication management. Patient denies the need for additional services at this time and feels safe returning to previous environment. Patient was discharged from hospital 07/22/2019. 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 Transportation at time of discharge: Asaf Camacho (friend). Per patient's request, CM notified [facility] readmission and of patient's room number. CM will assist as needed for DC plans PRN. DCPIA - Discharge Planning Initial Assessment Updated by [email or web address]: Coni Coombs on 07/24/19 12:21 pm * Is the patient Alert and Oriented? Yes * How many steps to enter\exit or inside your home? Unknown * PCP Does not have a PCP at this time. Patient would like to establish with Keke Paz. * Pharmacy [facility]. [facility] for diabetic test strips. [facility]. * Preadmission Environment Home with Family * ADLs Independent * Equipment None * Other Equipment Glucometer * List name and contact numbers for known caregivers / representatives who currently or will assist patient after discharge: Hina Camacho (friend) [phone]. Jackelyn Bryant unknown number. * Verbal permission to speak to the caregivers and representatives has been obtained from the patient. Yes * Community resources currently utilized None * Please name any agencies selected above. NA * Additional services required to return to the preadmission environment? Yes * Can the patient safely return to the preadmission environment? Yes * Has this patient been hospitalized within the prior 30 days at any hospital? Yes Last DP export: 07/27/19 6:45 a Patient Name: ESTELA HILLIARD Page [id number] at 1322 All edits/amendments must be made on the electronic document DICTATION DATE: 07/27/19 1321 USABILITY STRATEGIST: KAREN 07/27/19 1321 RPT#: [id number] DC DATE: STATUS: ADM IN [facility] [address] [place] [address] END OF REPORT
[2019-07-27 13:44] VITALS: BP 140/88
[2019-07-27] MEDS ORDERED: LEVAQUIN750 MG PO (14:44)
[2019-07-27] MEDS ORDERED: ZOVIRAX200 MG PO (15:59)
--- NOTE | 2019-07-28 11:19 | MORECARE ---
CASE MANAGEMENT DISCHARGE SUMMARY PATIENT: ESTELA HILLIARD UNIT: [id number] ADM DATE: 07/24/19 AGE: 63 : 55 SEX: F ROOM/BED: D.2100 AUTHOR: DOM,DOC PHYSICIAN: REFERRING PHYSICIAN: JAILYN WU MD DATE OF SERVICE: 07/28/19 Discharge Plan Patient Name: ESTELA HILLIARD Facility: [facility]:[place] : 1955 Planned Disposition: Home Anticipated Discharge Date: Discharge Date: 07/27/2019 Expected LOS: Initial Reviewer: [email or web address] Initial Review Date: 07/24/2019 Generated: 07/28/19 12:19 pm Comments DCP- Discharge Planning Updated by [id number]: Gutierrez Wheeler on 07/27/19 12:[address] Patient Name: ESTELA HILLIARD Encounter No: [id number] : 1955 [facility] Insurance: [facility] Anticipated DC Date: Planned Disposition: Home DCP follow-up note: CM MET WITH PT IN ROOM TO DISCUSS DISCHARGE NEEDS AND PLANNING. CM DISCUSSED AVAILABILITY OF HOME HEALTH, REHAB SERVICES AND MEDICAL EQUIPMENT. PT DENIES DISCHARGE NEEDS. DAUGHTER TO TRANSPORT HOME AT DISCHARGE. CM ASKED ABOUT INSULIN NEEDLES FOR THE PEN, PT STATES SHE HAD NEVER USED AN INSULIN PEN AND WHEN PICKING IT UP AT PHARMACY, SHE DID NOT KNOW SHE NEEDED NEEDLES TO GO WITH IT. PT REPORTS ABILITY TO GET SUPPLIES. PT STATES SHE LOST HER GLUCOMETER WHEN MOVING TO HER DAUGHTERS HOME. SHE WILL NEED A NEW PRESCRIPTION FOR METER AND LANCET DEVICE. CM TO FOLLOW AND ASSIST NEEDED. PT PLANS TO DISCHARGE HOME WITH DAUGHTER, CAN FILL MEDICATIONS BUT WILL NEED PRESCRIPTION FOR NEW GLUCOMETER AND LANCET DEVICE FOR DISCHARGE HOME. Gutierrez Wheeler, CASE MANAGEMENT DCP- Discharge Planning Updated by [id number]: Coni Coombs on 07/24/19 11:[address] CM met with patient to discuss initial discharge planning. Patient is in agreement to proceed with the assessment. Patient is drowsy, but answers questions. Falls asleep repeatedly during assessment. Stairs/steps: unknown at this time. PCP: Patient has not attempted to make appointment with Dr. Martinez as yet. Pharmacy: [facility] Dumont. [facility] test strips [facility]. Patient states she was given an Insulin pen upon DC, but DID NOT CHUCK WAGON COOK NEEDLES FOR PEN. Patient lives between her daughter's home, Jackelyn Bryant (no phone # and Hina Camacho's home (friend) #[phone]. HHS: Did not want to discuss HHS, Rehab or DME. Patient gives permission to speak with family members/care givers. Emergency contact: Hina Camacho [phone].Patient is Independent with all ADL's, medication management. Patient denies the need for additional services at this time and feels safe returning to previous environment. Patient was discharged from hospital 07/22/2019. 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 Transportation at time of discharge: Asaf Camacho (friend). Per patient's request, CM notified [facility] readmission and of patient's room number. CM will assist as needed for DC plans PRN. DCPIA - Discharge Planning Initial Assessment Updated by [id number]: Coni Coombs on 07/24/19 12:21 pm * Is the patient Alert and Oriented? Yes * How many steps to enter\exit or inside your home? Unknown * PCP Does not have a PCP at this time. Patient would like to establish with Keke Paz. * [facility] for diabetic test strips. [facility] * Preadmission Environment Home with Family * ADLs Independent * Equipment None * Other Equipment Glucometer * List name and contact numbers for known caregivers / representatives who currently or will assist patient after discharge: Hina Camacho (friend) [phone]. Jackelyn Bryant unknown number. * Verbal permission to speak to the caregivers and representatives has been obtained from the patient. Yes * Community resources currently utilized None * Please name any agencies selected above. NA * Additional services required to return to the preadmission environment? Yes * Can the patient safely return to the preadmission environment? Yes * Has this patient been hospitalized within the prior 30 days at any hospital? Yes Last DP export: 07/27/19 12:22 p Patient Name: ESTELA HILLIARD Page 30084 at 1119 All edits/amendments must be made on the electronic document DICTATION DATE: 07/28/191118 VENEER MARKER: KAREN 07/28/19 1119 RPT#: [id number] DC DATE:07/27/19 STATUS: DIS IN [facility] [address] [place] [address] END OF REPORT
== END 2019-07-27 18:20 | disposition home or self-care (01) | DRG 871 ==
LOC: D.ER 08:38 → D.M2 10:42 → D.SDCHOLD 16:36 → D.M2 16:38
PROVIDERS: Family Medicine; ADMIT Internal Medicine Nephrology; ATTEND Internal Medicine Nephrology
DX: A41.9 Sepsis, unspecified organism (principal); J96.01 Acute respiratory failure with hypoxia; N39.0 Urinary tract infection, site not specified; E87.1 Hypo-osmolality and hyponatremia; N17.9 Acute kidney failure, unspecified; I50.32 Chronic diastolic (congestive) heart failure; E44.0 Moderate protein-calorie malnutrition; R78.81 Bacteremia; N12 Tubulo-interstitial nephritis, not specified as acute or chronic; E11.9 Type 2 diabetes mellitus without complications; I11.0 Hypertensive heart disease with heart failure; E87.6 Hypokalemia; Z68.33 Body mass index [BMI] 33.0-33.9, adult

== ENCOUNTER → 2019-09-18 19:27 | Outpatient (CLI) | payer OTHER ==
[2019-07-25 15:02] VITALS: BMI 32.4
[~2019-09-18 19:27] MED LIST changes: +LEVAQUIN750 MG PO; +ZOVIRAX200 MG PO
== END | disposition home or self-care (01) ==
LOC: D.LABREF 19:27
PROVIDERS: ATTEND Urology
DX: N39.0 Urinary tract infection, site not specified (principal)

== ENCOUNTER → 2019-09-29 12:34 | Outpatient (CLI) | payer OTHER ==
[2019-07-25 15:02] VITALS: BMI 32.4
== END | disposition home or self-care (01) ==
LOC: D.CT 12:34
PROVIDERS: ATTEND Urology
DX: N10 Acute pyelonephritis (principal)

== ENCOUNTER → 2019-10-06 14:59 | Outpatient (CLI) | payer OTHER ==
[2019-07-25 15:02] VITALS: BMI 32.4
== END | disposition home or self-care (01) ==
LOC: D.LABREF 14:59
PROVIDERS: ATTEND Urology
DX: N39.0 Urinary tract infection, site not specified (principal)

== ENCOUNTER 2019-11-13 21:59 | Emergency (ER) | payer OTHER ==
[~2019-11-13] VITALS: Ht 157.5 cm; Wt 81.6 kg
[2019-11-13 22:20] VITALS: Ht 157.5 cm; Wt 81.6 kg
[2019-11-13 22:58] LABS: BASOPHILS 0.3 % (0-2); HEMATOCRIT 36.9 % (36.0-48.0); HEMOGLOBIN 12.2 g/dL (12-16); IMMATURE GRANULOCYTES 0.1 % (0-5); LYMPHOCYTES 19.3 % (15-50); MCH 29.5 pg (26.0-34.0); MCHC 33.1 g/dL (31.0-37.0); MCV 89.3 fL (80.0-100.0); MONOCYTES 7.3 % (2-11); PLATELET COUNT 187 10x3/uL (130-400); RBC 4.13 10x6/uL (4.00-5.40); WBC 7.7 10x3/uL (4.8-10.8)
[2019-11-13 23:17] LABS: APTT 28.7 SECONDS (22.8-39.4); INR 0.98 (0.85-1.17)
[2019-11-13 23:18] LABS: D-DIMER-QUANTITATIVE 0.44 ug/mLFEU (0.20-0.54)
[2019-11-13 23:31] LABS: CALC OSMOLALITY 280 mosm/kg (275-300); CALCIUM 9.2 mg/dL (8.5-10.1); CARBON DIOXIDE 23.8 mmol/L (21.0-32.0); CHLORIDE - SERUM 102 mmol/L (98-107); CREATININE - SERUM 0.7 mg/dL (0.6-1.3); GLUCOSE 174 mg/dL (74-106); SODIUM 138 mmol/L (136-145); UREA NITROGEN 15 mg/dL (7-18); eGFR NON AFRICAN AMERICAN 89 mL/min (90-120)
[2019-11-13 23:36] LABS: ALBUMIN 3.6 g/dL (3.4-5.0); ALKALINE PHOSPHATASE 88 U/L (30-120); ALT (SGPT) 27 U/L (10-68); BILIRUBIN - TOTAL 0.39 mg/dL (0.2-1.3); PROTEIN - SERUM 7.6 g/dL (6.4-8.2)
[2019-11-13 23:46] LABS: BILIRUBIN NEGATIVE (NEGATIVE); GLUCOSE 100 mg/dL (NEGATIVE); KETONE NEGATIVE (NEGATIVE); NITRITE POSITIVE (NEGATIVE); SPECIFIC GRAVITY 1.015 (1.005-1.020); UROBILINOGEN NORMAL (NORMAL)
[2019-11-13 23:48] LABS: BACTERIA MANY /hpf (NEGATIVE); EPITHELIAL CELLS 0-5 /hpf (0-5); RED CELLS - URINE 0-5 /hpf (0-5)
[2019-11-14] MEDS ORDERED: SMZ-TMP DS 800-1 TAB PO (00:44)
[2019-11-14] MEDS ORDERED: ULTRAM50 MG PO (00:44)
[2019-11-14 01:45] VITALS: BP 185/83
== END 2019-11-14 01:27 | disposition home or self-care (01) ==
LOC: D.ER 21:59
PROVIDERS: Family Medicine
DX: N39.0 Urinary tract infection, site not specified (principal); R60.9 Edema, unspecified; E11.9 Type 2 diabetes mellitus without complications; I10 Essential (primary) hypertension; K21.9 Gastro-esophageal reflux disease without esophagitis; M79.605 Pain in left leg; Z79.4 Long term (current) use of insulin; Z79.84 Long term (current) use of oral hypoglycemic drugs

== ENCOUNTER 2019-11-15 22:29 | Inpatient (IN) | payer OTHER ==
[~2019-11-15] VITALS: Ht 157.5 cm; Wt 81.6 kg
[~2019-11-15 22:29] MED LIST changes: +SMZ-TMP DS 800-1 TAB PO; +ULTRAM50 MG PO
[2019-11-15 23:17] LABS: BASOPHILS 0.1 % (0-2); EOSINOPHILS 0 % (0-7); HEMATOCRIT 41.2 % (36.0-48.0); HEMOGLOBIN 13.8 g/dL (12-16); IMMATURE GRANULOCYTES 0.2 % (0-5); LYMPHOCYTES 12.8 % (15-50); MCH 29.7 pg (26.0-34.0); MCHC 33.5 g/dL (31.0-37.0); MCV 88.6 fL (80.0-100.0); MONOCYTES 12.7 % (2-11); NEUTROPHILS 74.2 % (40-80); PLATELET COUNT 201 10x3/uL (130-400); RBC 4.65 10x6/uL (4.00-5.40); RDW 12.7 % (11.5-14.5); WBC 8.1 10x3/uL (4.8-10.8)
[2019-11-15 23:30] LABS: CALC OSMOLALITY 265 mosm/kg (275-300); CALCIUM 9.2 mg/dL (8.5-10.1); CARBON DIOXIDE 24.1 mmol/L (21.0-32.0); CHLORIDE - SERUM 94 mmol/L (98-107); CREATININE - SERUM 0.8 mg/dL (0.6-1.3); POTASSIUM - SERUM 4.5 mmol/L (3.5-5.1); SODIUM 128 mmol/L (136-145); UREA NITROGEN 14 mg/dL (7-18); eGFR NON AFRICAN AMERICAN 76 mL/min (90-120)
[2019-11-15 23:31] LABS: APTT 32.7 SECONDS (22.8-39.4); INR 1.12 (0.85-1.17); PROTIME 14.4 SECONDS (11.6-15.0)
[2019-11-15 23:32] LABS: GLUCOSE 242 mg/dL (74-106)
[2019-11-15 23:46] LABS: ALBUMIN 3.4 g/dL (3.4-5.0); ALKALINE PHOSPHATASE 81 U/L (30-120); ALT (SGPT) 16 U/L (10-68); BILIRUBIN - TOTAL 0.76 mg/dL (0.2-1.3); CKMB 0.1 U/L (0.0-3.6); CREATINE KINASE 72 UL (21-215); PROTEIN - SERUM 8.8 g/dL (6.4-8.2); TROPONIN-I < 0.017 ng/mL (0.000-0.060)
[2019-11-15 23:46] LABS: BILIRUBIN NEGATIVE (NEGATIVE); GLUCOSE 100 mg/dL (NEGATIVE); KETONE MODERATE mg/dL (NEGATIVE); NITRITE NEGATIVE (NEGATIVE); UROBILINOGEN NORMAL (NORMAL)
[2019-11-15 23:48] LABS: BACTERIA FEW /hpf (NEGATIVE); EPITHELIAL CELLS 0-5 /hpf (0-5); RED CELLS - URINE 0-5 /hpf (0-5)
[2019-11-16 00:15] VITALS: BP 152/82
--- NOTE | 2019-11-16 00:18 | NUR ---
PT GIVEN PILLOW AND HEAD OF BED ADJUSTED TO LEVEL OF COMFORT, DENIES ANY FURTHER NEEDS AT THIS TIME. CALL LIGHT WITHIN REACH. WILL CONTINUE TO MONITOR.
--- NOTE | 2019-11-16 01:01 | NUR ---
PT ASSISTED WITH BEDPAN. TOLERATED WELL.
[2019-11-16 01:15] VITALS: BP 177/90
--- NOTE | 2019-11-16 01:30 | NUR ---
PT ASSISTED WITH BEDPAN AND CLEAN DRY BRIEF PUT ON. TOLERATED WELL.
[2019-11-16 02:24] VITALS: BMI 33.0
[2019-11-16 09:00] VITALS: BP 155/82
[2019-11-16 12:28] VITALS: BP 130/80
[2019-11-16 13:52] LABS: BASOPHILS 0.2 % (0-2); EOSINOPHILS 0.2 % (0-7); HEMATOCRIT 37.8 % (36.0-48.0); HEMOGLOBIN 12.4 g/dL (12-16); IMMATURE GRANULOCYTES 0.3 % (0-5); LYMPHOCYTES 21.8 % (15-50); MCH 29.5 pg (26.0-34.0); MCHC 32.8 g/dL (31.0-37.0); MEAN PLATELET VOLUME 9.4 fL (7.4-10.4); MONOCYTES 13.1 % (2-11); NEUTROPHILS 64.4 % (40-80); PLATELET COUNT 187 10x3/uL (130-400); RDW 12.5 % (11.5-14.5); WBC 6.4 10x3/uL (4.8-10.8)
[2019-11-16 14:00] LABS: CALCIUM 8.5 mg/dL (8.5-10.1); CARBON DIOXIDE 25.8 mmol/L (21.0-32.0); CREATININE - SERUM 0.9 mg/dL (0.6-1.3); POTASSIUM - SERUM 3.8 mmol/L (3.5-5.1)
[2019-11-16 14:57] VITALS: Ht 157.5 cm; Wt 81.6 kg
[2019-11-16 17:16] VITALS: BP 142/59
[2019-11-17] VITALS: BP 156/81
[2019-11-17 04:00] VITALS: BP 149/84
--- NOTE | 2019-11-17 06:39 | NUR ---
PT AFTER VOID BLADDER SCAN AT THIS TIME IS 173.
[2019-11-17 07:31] LABS: BASOPHILS 0.2 % (0-2); EOSINOPHILS 0.8 % (0-7); HEMATOCRIT 36.5 % (36.0-48.0); HEMOGLOBIN 11.9 g/dL (12-16); IMMATURE GRANULOCYTES 0.2 % (0-5); MCH 28.9 pg (26.0-34.0); MCHC 32.6 g/dL (31.0-37.0); MCV 88.6 fL (80.0-100.0); MEAN PLATELET VOLUME 8.8 fL (7.4-10.4); MONOCYTES 13.1 % (2-11); NEUTROPHILS 58.7 % (40-80); PLATELET COUNT 187 10x3/uL (130-400); RBC 4.12 10x6/uL (4.00-5.40); RDW 12.5 % (11.5-14.5)
[2019-11-17 07:39] LABS: CALCIUM 8.9 mg/dL (8.5-10.1); CARBON DIOXIDE 27.2 mmol/L (21.0-32.0); CREATININE - SERUM 0.7 mg/dL (0.6-1.3); POTASSIUM - SERUM 3.6 mmol/L (3.5-5.1); SODIUM 137 mmol/L (136-145); UREA NITROGEN 11 mg/dL (7-18); eGFR NON AFRICAN AMERICAN 89 mL/min (90-120)
[2019-11-17 08:02] LABS: CALC OSMOLALITY 277 mosm/kg (275-300); CHLORIDE - SERUM 101 mmol/L (98-107); GLUCOSE 194 mg/dL (74-106)
[2019-11-17 08:40] VITALS: BP 130/96
[2019-11-17 12:13] VITALS: BP 137/84
[2019-11-17] MEDS ORDERED: PHENAZOPYRIDIN100 MG PO (14:53)
[2019-11-17] MEDS ORDERED: MACRODANTIN100 MG PO (14:54)
--- NOTE | 2019-11-17 15:50 | NUR ---
PT'S DISCHARGE INSTRUCTIONS REVIEWED. MEDS TO [facility]. SHE IS CALLING FAMILY FOR RIDE BUT COMING FROM [place] SO BE LITTLE WHILE. STILL PENDING CV-19 RESULTS.
== END 2019-11-17 17:32 | disposition home or self-care (01) | DRG 690 ==
LOC: D.ER 22:29 → D.M2 11-16 01:22
PROVIDERS: Family Medicine; ADMIT Internal Medicine Nephrology; ATTEND Internal Medicine Nephrology
DX: N39.0 Urinary tract infection, site not specified (principal); I50.32 Chronic diastolic (congestive) heart failure; I11.0 Hypertensive heart disease with heart failure; F41.9 Anxiety disorder, unspecified; C67.9 Malignant neoplasm of bladder, unspecified

== ENCOUNTER 2019-12-25 17:53 | Inpatient (IN) | payer OTHER ==
[~2019-12-25] VITALS: Ht 157.5 cm; Wt 81.8 kg
[~2019-12-25 17:53] MED LIST changes: +MACRODANTIN100 MG PO; +PHENAZOPYRIDIN100 MG PO
[2019-12-25 18:20] LABS: BASOPHILS 0.1 % (0-2); EOSINOPHILS 0 % (0-7); HEMATOCRIT 41.5 % (36.0-48.0); HEMOGLOBIN 13.7 g/dL (12-16); IMMATURE GRANULOCYTES 0.3 % (0-5); MCH 29.1 pg (26.0-34.0); MCV 88.3 fL (80.0-100.0); MEAN PLATELET VOLUME 9.1 fL (7.4-10.4); MONOCYTES 6.3 % (2-11); NEUTROPHILS 87.3 % (40-80); PLATELET COUNT 208 10x3/uL (130-400); RDW 12.9 % (11.5-14.5); WBC 12.2 10x3/uL (4.8-10.8)
[2019-12-25 18:41] LABS: ALBUMIN 3.7 g/dL (3.4-5.0); ANION GAP 16.3 mmol/L (8-16); BILIRUBIN - TOTAL 0.69 mg/dL (0.2-1.3); CALCIUM 9.3 mg/dL (8.5-10.1); CARBON DIOXIDE 22.9 mmol/L (21.0-32.0); CREATININE - SERUM 1.2 mg/dL (0.6-1.3); POTASSIUM - SERUM 4.2 mmol/L (3.5-5.1)
[2019-12-25 19:00] VITALS: BP 182/93
[2019-12-25 19:12] LABS: BILIRUBIN NEGATIVE (NEGATIVE); GLUCOSE 1000 mg/dL (NEGATIVE); KETONE MODERATE mg/dL (NEGATIVE); NITRITE NEGATIVE (NEGATIVE); SPECIFIC GRAVITY 1.015 (1.005-1.020); UROBILINOGEN NORMAL (NORMAL)
[2019-12-25 19:13] LABS: BACTERIA MANY /hpf (NEGATIVE); EPITHELIAL CELLS 0-5 /hpf (0-5); RED CELLS - URINE 0-5 /hpf (0-5); WHITE CELLS - URINE >50 /hpf (NEGATIVE)
[2019-12-25 19:30] VITALS: BP 190/83
[2019-12-25 21:20] VITALS: BP 178/90
[2019-12-25 21:58] VITALS: BP 175/82
[2019-12-25 22:35] VITALS: BP 178/90
--- NOTE | 2019-12-25 23:00 | NUR ---
TO BED VIA STRETCHER FROM ER PT IS LETHARGIC WILL NOT ANSWER MY QUESTIONS AT THIS TIME BED LOW AND LOCKED CLEANED PT INC OF BOWEL AND BLADDER
--- NOTE | 2019-12-25 23:20 | NUR ---
VS OBTAINEED AND O2 SAT DOWN 78% O2 AT TWO LITERS AND UP 88% INCREASED TO 4 LITERS
--- NOTE | 2019-12-26 00:02 | NUR ---
PT IS TOO LETHARGIC AND UNABLE TO ANSWER QUESTIONS FOR HISTORY AND SUICIDE SCREEN
[2019-12-26 04:00] VITALS: BP 148/77
[2019-12-26 06:17] LABS: BASOPHILS 0.1 % (0-2); EOSINOPHILS 0 % (0-7); HEMATOCRIT 35.5 % (36.0-48.0); HEMOGLOBIN 11.2 g/dL (12-16); IMMATURE GRANULOCYTES 0.3 % (0-5); LYMPHOCYTES 9.1 % (15-50); MCH 28.1 pg (26.0-34.0); MCHC 31.5 g/dL (31.0-37.0); MCV 89.2 fL (80.0-100.0); MEAN PLATELET VOLUME 9.5 fL (7.4-10.4); MONOCYTES 7.5 % (2-11); PLATELET COUNT 205 10x3/uL (130-400); RBC 3.98 10x6/uL (4.00-5.40); RDW 13.1 % (11.5-14.5)
[2019-12-26 06:32] LABS: ALBUMIN 2.9 g/dL (3.4-5.0); ANION GAP 18.6 mmol/L (8-16); BILIRUBIN - TOTAL 0.51 mg/dL (0.2-1.3); CALCIUM 8.2 mg/dL (8.5-10.1); CARBON DIOXIDE 19.6 mmol/L (21.0-32.0); CREATININE - SERUM 0.9 mg/dL (0.6-1.3); POTASSIUM - SERUM 4.2 mmol/L (3.5-5.1)
[2019-12-26 06:33] LABS: PROTEIN - SERUM 6.7 g/dL (6.4-8.2)
--- NOTE | 2019-12-26 07:20 | NUR ---
REPORT RECIEVED. PT LYING ON LEFT SIDE. RR EVEN AND UNLABORED ON 3L NC. SHE HAS A R AND L FA PIV THAT ARE BOTH SL. BED LOCKED AND IN LOWEST POSITION, CALL LIGHT WITHIN REACH. WILL CTM
[2019-12-26 13:53] VITALS: BMI 32.9
[2019-12-26 14:24] VITALS: BP 153/84
[2019-12-26 14:43] VITALS: Ht 157.5 cm; Wt 81.8 kg
[2019-12-26 18:45] VITALS: BP 177/89
--- NOTE | 2019-12-26 19:01 | NUR ---
RESTING IN BED AWAKENS EASILY AND DENIES NEEDS BED IS LOW AND LOCKED CALL LIGHT IS WITH PT
[2019-12-26 19:34] LABS: INR 1.12 (0.85-1.17); PROTIME 14.4 SECONDS (11.6-15.0)
[2019-12-26 19:35] LABS: APTT 29.8 SECONDS (22.8-39.4)
[2019-12-26 19:36] LABS: D-DIMER-QUANTITATIVE 1.83 ug/mLFEU (0.20-0.54)
[2019-12-26 20:00] VITALS: BP 180/65
[2019-12-27] VITALS: BP 153/81
[2019-12-27 04:00] VITALS: BP 153/72
[2019-12-27 06:24] LABS: BASOPHILS 0.1 % (0-2); EOSINOPHILS 0.1 % (0-7); HEMATOCRIT 33.7 % (36.0-48.0); HEMOGLOBIN 11.1 g/dL (12-16); IMMATURE GRANULOCYTES 0.1 % (0-5); MCH 28.8 pg (26.0-34.0); MCHC 32.9 g/dL (31.0-37.0); MCV 87.3 fL (80.0-100.0); MEAN PLATELET VOLUME 9.6 fL (7.4-10.4); NEUTROPHILS 74.7 % (40-80); PLATELET COUNT 190 10x3/uL (130-400); RBC 3.86 10x6/uL (4.00-5.40); RDW 13.1 % (11.5-14.5)
[2019-12-27 06:31] LABS: ALBUMIN 2.7 g/dL (3.4-5.0); ALKALINE PHOSPHATASE 65 U/L (30-120); ALT (SGPT) 14 U/L (10-68); BILIRUBIN - TOTAL 0.43 mg/dL (0.2-1.3); CALCIUM 8.3 mg/dL (8.5-10.1); CHLORIDE - SERUM 98 mmol/L (98-107); CREATININE - SERUM 0.8 mg/dL (0.6-1.3); POTASSIUM - SERUM 3.8 mmol/L (3.5-5.1); PROTEIN - SERUM 6.5 g/dL (6.4-8.2); SODIUM 133 mmol/L (136-145); UREA NITROGEN 12 mg/dL (7-18); eGFR NON AFRICAN AMERICAN 76 mL/min (90-120)
[2019-12-27 06:32] LABS: CALC OSMOLALITY 272 mosm/kg (275-300); CARBON DIOXIDE 26.3 mmol/L (21.0-32.0); GLUCOSE 232 mg/dL (74-106)
[2019-12-27 06:42] LABS: WBC 7.8 10x3/uL (4.8-10.8)
--- NOTE | 2019-12-27 07:20 | NUR ---
REPORT RECIEVED. PT SITTING SEMI FOWLERS IN BED. RR EVEN AND UNLABORED ON 3L NC. SHE HAS A L FA PIV THAT IS SL. BED LOCKED AND IN LOWEST POSITION, CALL LIGHT WITHIN REACH. WILL CTM
--- NOTE | 2019-12-27 17:47 | NUR ---
I have reviewed this patient and I concur with the Shift Assessment completed by the Licensed Practical Nurse today this shift.
--- NOTE | 2019-12-27 19:00 | NUR ---
REPORT RECEIVED, WILL CONTINUE POC. PATIENT IS AAOX4, LYING IN SUPINE POSITION. NO S/S OF DISTRESS OBSERVED, RR EVEN AND UNLABORED ON ROOM AIR. PATIENT DENIES NEEDS AT THIS TIME. CL IN REACH, BED LOCKED AND LOWERED. WILL CTM.
[2019-12-27 20:00] VITALS: BP 145/72
--- NOTE | 2019-12-28 02:00 | NUR ---
I have reviewed this patient and I concur with the Shift Assessment completed by the Licensed Practical Nurse today this shift.
[2019-12-28 06:24] LABS: BASOPHILS 0.4 % (0-2); HEMATOCRIT 32.9 % (36.0-48.0); HEMOGLOBIN 10.5 g/dL (12-16); IMMATURE GRANULOCYTES 0.6 % (0-5); LYMPHOCYTES 27.7 % (15-50); MCH 27.9 pg (26.0-34.0); MCHC 31.9 g/dL (31.0-37.0); MCV 87.5 fL (80.0-100.0); MEAN PLATELET VOLUME 9.7 fL (7.4-10.4); MONOCYTES 12.3 % (2-11); PLATELET COUNT 178 10x3/uL (130-400); RBC 3.76 10x6/uL (4.00-5.40)
[2019-12-28 06:50] LABS: WBC 5.1 10x3/uL (4.8-10.8)
[2019-12-28 06:55] LABS: ALBUMIN 2.6 g/dL (3.4-5.0); ALKALINE PHOSPHATASE 67 U/L (30-120); ALT (SGPT) 14 U/L (10-68); BILIRUBIN - TOTAL 0.32 mg/dL (0.2-1.3); CALC OSMOLALITY 275 mosm/kg (275-300); CALCIUM 8.5 mg/dL (8.5-10.1); CARBON DIOXIDE 30.5 mmol/L (21.0-32.0); CHLORIDE - SERUM 99 mmol/L (98-107); CREATININE - SERUM 0.8 mg/dL (0.6-1.3); GLUCOSE 222 mg/dL (74-106); MAGNESIUM - SERUM 2.1 mg/dL (1.8-2.4); POTASSIUM - SERUM 3.4 mmol/L (3.5-5.1); PROTEIN - SERUM 6.9 g/dL (6.4-8.2); SODIUM 135 mmol/L (136-145); UREA NITROGEN 11 mg/dL (7-18); eGFR NON AFRICAN AMERICAN 76 mL/min (90-120)
[2019-12-28 09:26] VITALS: BP 139/76
--- NOTE | 2019-12-28 13:28 | NUR ---
Nutrition Follow-up: Good/fair PO intake. States that she ate majority of breakfast this AM. Reports intermittent nausea without vomiting. Diet: Diabetic PO intake: 50-100% Wt: 180# (12/25) Labs noted: Na 135, K+ 3.4, Glu 222, Alb 2.6 Meds noted: Protonix, Humulin, electrolyte protocol -Encourage PO intake and honor food preferences within diet restrictions. -Monitor wt. -RD following.
[2019-12-28 15:52] VITALS: BP 153/68
--- NOTE | 2019-12-28 17:04 | NUR ---
RESP UL ON . NO NEEDS VOICED. CALL LIGHT IN REACH. WILL MONITOR.
--- NOTE | 2019-12-28 18:42 | NUR ---
I have reviewed this patient and I concur with the Shift Assessment completed by the Licensed Practical Nurse today this shift.
--- NOTE | 2019-12-28 19:45 | NUR ---
PT LYING IN BED AWAKE ALERT AND ORIENTED x4 NO SIGNS OR SYMPTOMS OF DISTRESS NOTED. SIDE RAILS x2. BED IS IN LOWEST POSITON AND CALL LIGHT AND OTHER PERSONAL ITEMS ARE WITH IN REACH. WILL CONTINUE TO MONIOR
[2019-12-28 20:00] VITALS: BP 131/51
[2019-12-29] VITALS: BP 101/43
--- NOTE | 2019-12-29 03:24 | NUR ---
PT LYING IN BED RESTING WITH EYES CLOSED. NO SIGNS OF DISTRESS NOTED. EASILY AWAKEN WITH VOICE STIMULATION. CALL LIGHT AND OTHER PERSONAL ITEMS WITH IN REACH. WILL CONTINUE TO MONITOR
[2019-12-29 04:00] VITALS: BP 115/55
[2019-12-29 06:35] LABS: BASOPHILS 0.4 % (0-2); EOSINOPHILS 3.4 % (0-7); HEMATOCRIT 31.4 % (36.0-48.0); HEMOGLOBIN 10.1 g/dL (12-16); IMMATURE GRANULOCYTES 1.8 % (0-5); LYMPHOCYTES 23.3 % (15-50); MCH 28.2 pg (26.0-34.0); MCHC 32.2 g/dL (31.0-37.0); MCV 87.7 fL (80.0-100.0); MEAN PLATELET VOLUME 9.3 fL (7.4-10.4); MONOCYTES 9.5 % (2-11); NEUTROPHILS 61.6 % (40-80); PLATELET COUNT 201 10x3/uL (130-400); RBC 3.58 10x6/uL (4.00-5.40); RDW 12.9 % (11.5-14.5); WBC 5.1 10x3/uL (4.8-10.8)
[2019-12-29 07:01] LABS: ALBUMIN 2.7 g/dL (3.4-5.0); ALKALINE PHOSPHATASE 70 U/L (30-120); BILIRUBIN - TOTAL 0.35 mg/dL (0.2-1.3); CALC OSMOLALITY 278 mosm/kg (275-300); CALCIUM 8.6 mg/dL (8.5-10.1); CARBON DIOXIDE 30.6 mmol/L (21.0-32.0); CHLORIDE - SERUM 100 mmol/L (98-107); CREATININE - SERUM 0.8 mg/dL (0.6-1.3); GLUCOSE 234 mg/dL (74-106); MAGNESIUM - SERUM 1.9 mg/dL (1.8-2.4); POTASSIUM - SERUM 3.6 mmol/L (3.5-5.1); PROTEIN - SERUM 7.2 g/dL (6.4-8.2); SODIUM 136 mmol/L (136-145); UREA NITROGEN 11 mg/dL (7-18); eGFR NON AFRICAN AMERICAN 76 mL/min (90-120)
[2019-12-29 07:03] LABS: ALT (SGPT) 18 U/L (10-68)
--- NOTE | 2019-12-29 08:00 | NUR ---
PT RECEIVED AWAKE AND ALERT. ASKING FOR BREAKFAST. NO COMPLAINTS.
[2019-12-29 10:01] VITALS: BP 159/69
[2019-12-29 15:09] VITALS: BP 172/70
--- NOTE | 2019-12-29 20:49 | NUR ---
PT DAUGHTER CALLED (DANIELLA) STATEING THAT HER MOM CALLED HER CRYING. CHECKED ON PT.PT LYING IN BED CRYING STATEING THAT SHE IS IN PAIN. OFFERED PT TYLENOL WHICH SHE REFUSED. OFFERED TO HELP PT REPOSITION IN BED FOR COMFORT PT STATE THAT IT DOES NOT HELP. OFFERED TO REPOSITIONED BED. PT REFUSED BLANCA PURDY APRN PAGED. CALL LIGHT AND OTHER PERSONAL ITEMS WITH IN REACH. WILL CONTINUE TO MONITOR
[2019-12-29 20:50] VITALS: BP 169/78
--- NOTE | 2019-12-29 21:39 | NUR ---
PRN TYLENOL ADMINISTERED TO PT. ASSIST PT TO RESTROOM. PT IS SITTING UP IN CHAIR. PT OFFERD WARM PACK FOR BACK PAIN. PT REFUSED. PT ENCOURAGED TO CALL FOR HELP WHEN NEEDED. PT ENCOUARGED TO TO CALL FOR HELP WHEN GETTING IN AND OUT OF CHAIR. CALL LIGHT BEDSIDE TABLE AND OTHER PERSONAL ITEMS WITH IN REACH. WILL CONTINUE TO MONITOR
[2019-12-30 00:49] VITALS: BP 196/97
--- NOTE | 2019-12-30 01:36 | NUR ---
PT SITTING UP IN CHAIR WITH LEGS ELEVATED. PT RESTING QUIETLY WITH EYES CLOSED EASILY AWAKEN WITH VOICE STIMULATION. RESPIRATIONS EVEN AND UNLABORED. PT HAS NO COMPLAINTS AT THIS TIME. CALL LIGHT AND OTHER PERSONAL ITEMS WITH IN REACH. CHAIR LOCKED. PT ENCOURAGED TO CALL FOR HELP WHEN NEEDED. WILL CONTINUE TO MONITOR
[2019-12-30 05:18] VITALS: BP 170/67
--- NOTE | 2019-12-30 06:31 | NUR ---
I have reviewed this patient and I concur with the Shift Assessment completed by the Licensed Practical Nurse today this shift.
--- NOTE | 2019-12-30 08:00 | NUR ---
PT RECEIVED AWAKE AND ALERT. SITTING UP IN CHAIR, SLEPT MOST OF NIGHT THERE.
[2019-12-30 08:13] LABS: EOSINOPHILS 3.2 % (0-7); HEMATOCRIT 31.8 % (36.0-48.0); HEMOGLOBIN 10.1 g/dL (12-16); IMMATURE GRANULOCYTES 5.6 % (0-5); MCH 28.1 pg (26.0-34.0); MCHC 31.8 g/dL (31.0-37.0); MCV 88.3 fL (80.0-100.0); MEAN PLATELET VOLUME 9.5 fL (7.4-10.4); MONOCYTES 9.2 % (2-11); RDW 13.1 % (11.5-14.5)
[2019-12-30 08:15] VITALS: BP 175/70
[2019-12-30 08:23] LABS: PLATELET COUNT 278 10x3/uL (130-400)
[2019-12-30 08:48] LABS: ALBUMIN 2.8 g/dL (3.4-5.0); ALKALINE PHOSPHATASE 75 U/L (30-120); ALT (SGPT) 16 U/L (10-68); BILIRUBIN - TOTAL 0.27 mg/dL (0.2-1.3); CALC OSMOLALITY 282 mosm/kg (275-300); CARBON DIOXIDE 29.5 mmol/L (21.0-32.0); CHLORIDE - SERUM 103 mmol/L (98-107); CREATININE - SERUM 0.7 mg/dL (0.6-1.3); GLUCOSE 238 mg/dL (74-106); POTASSIUM - SERUM 3.6 mmol/L (3.5-5.1); PROTEIN - SERUM 7.2 g/dL (6.4-8.2); SODIUM 138 mmol/L (136-145); UREA NITROGEN 10 mg/dL (7-18); eGFR NON AFRICAN AMERICAN 89 mL/min (90-120)
[2019-12-30 11:23] VITALS: BP 189/93
[2019-12-30 15:44] VITALS: BP 171/67
[2019-12-30 20:00] VITALS: BP 175/97
--- NOTE | 2019-12-30 21:25 | NUR ---
ASSIST PT TO RESTROOM. NO SIGNS OF DISTRESS NOTED. RESPIRATIONS EVEN AND UNLABORED. PRN PAIN MEDICATION GIVEN FOR A 7/10 PAIN LEVEL. PT ENCOURAGE TO CALL FOR HELP WHEN NEEDED AND WHEN GETTING IN AND OUT OF BED. CALL LIGHT AND OTHER PERSONAL ITEMS WITH IN REACH. WILL CONTINUE TO MONITOR
[2019-12-31] VITALS: BP 142/65
--- NOTE | 2019-12-31 02:47 | NUR ---
PT RESTING IN BED QUIETLY WITH EYES CLOSED. EASILY AWAKEN WITH VOICE STIMULATION. PT HAS NO COMPLAINTS AT THIS TIME. CALL LIGHT AND OTHER PERSONAL ITEMS WITH IIN REACH. WILL CONTINUE TO MONITOR
--- NOTE | 2019-12-31 05:44 | NUR ---
I have reviewed this patient and I concur with the Shift Assessment completed by the Licensed Practical Nurse today this shift.
[2019-12-31 07:08] LABS: HEMATOCRIT 34.9 % (36.0-48.0); HEMOGLOBIN 11.1 g/dL (12-16); LYMPHOCYTES 25.7 % (15-50); MCHC 31.8 g/dL (31.0-37.0); MCV 87.9 fL (80.0-100.0); MEAN PLATELET VOLUME 8.7 fL (7.4-10.4); PLATELET COUNT 307 10x3/uL (130-400); RBC 3.97 10x6/uL (4.00-5.40); RDW 13.2 % (11.5-14.5)
[2019-12-31 07:40] LABS: ALBUMIN 2.7 g/dL (3.4-5.0); ALKALINE PHOSPHATASE 69 U/L (30-120); ALT (SGPT) 15 U/L (10-68); BILIRUBIN - TOTAL 0.21 mg/dL (0.2-1.3); CALC OSMOLALITY 282 mosm/kg (275-300); CALCIUM 9.1 mg/dL (8.5-10.1); CARBON DIOXIDE 29.3 mmol/L (21.0-32.0); CHLORIDE - SERUM 103 mmol/L (98-107); CREATININE - SERUM 0.7 mg/dL (0.6-1.3); GLUCOSE 223 mg/dL (74-106); POTASSIUM - SERUM 3.7 mmol/L (3.5-5.1); PROTEIN - SERUM 7.2 g/dL (6.4-8.2); SODIUM 139 mmol/L (136-145); UREA NITROGEN 8 mg/dL (7-18); eGFR NON AFRICAN AMERICAN 89 mL/min (90-120)
[2019-12-31 08:02] VITALS: BP 180/72
--- NOTE | 2019-12-31 08:25 | NUR ---
UP IN BED AWAKE AT THIS TIME. DENIES ANY NEEDS. CALL LIGHT IN REACH. NO ACUTE DISTERSS NOTED. WILL CONTINUE PLAN OF CARE.
--- NOTE | 2019-12-31 10:26 | NUR ---
NOTED PTS BP 180/72, SPOKE WITH AMY CHANDLER APN, AND NOTIFIED OF THIS, SHE STATED SHE WILL PLACE ORDERS.
--- NOTE | 2019-12-31 11:09 | NUR ---
PER DR PALACIOS, START NORVASC 2.5 PO DAILY FOR HTN.
[2019-12-31 11:39] VITALS: BP 179/78
--- NOTE | 2019-12-31 13:34 | NUR ---
RUSTY ATWOOD IN BED WATCHING TV AT THIS TIME. DENIES ANY NEEDS. CALL LIGHT IN REACH. WILL CONTINUE PLAN OF CARE.
--- NOTE | 2019-12-31 15:35 | NUR ---
NO ACUTE DISTERSS NOTED. NO CHANGE. PT ALERT WATCHING TV. CALL LIGHT IN REACH. WILL CONTINUE PLAN OF CARE.
[2019-12-31 15:48] VITALS: BP 137/83
--- NOTE | 2019-12-31 18:10 | NUR ---
PT C/O FEELING LIKE HER BLADDER IS FULL AFTER VOIDING. BLADDER SCAN PERFORMED. NOTED 44ML RESIDUAL URINE IN BLADDER AFTER URINATION.
[2019-12-31 20:00] VITALS: BP 146/61
--- NOTE | 2019-12-31 21:00 | NUR ---
PATIENT IN BED, AWAKE AND ALERT. ORIENTED X 4. ASSESSMENT COMPLETED PER FLOW SHEET WITH NO ACUTE DISTRESS OBSERVED. VSS. CALL LIGHT IN REACH AND ABLE TO UTILIZE TO MAKE NEEDS KNOWN. WILL CONTINUE CURRENT POC
[2020-01-01] VITALS: BP 174/53
[2020-01-01 04:00] VITALS: BP 172/71
[2020-01-01 06:48] LABS: HEMATOCRIT 34.6 % (36.0-48.0); HEMOGLOBIN 11.1 g/dL (12-16); MCH 28.2 pg (26.0-34.0); MCHC 32.1 g/dL (31.0-37.0); MCV 87.8 fL (80.0-100.0); MEAN PLATELET VOLUME 8.7 fL (7.4-10.4); NEUTROPHILS 63.2 % (40-80); PLATELET COUNT 324 10x3/uL (130-400); RBC 3.94 10x6/uL (4.00-5.40); RDW 13.1 % (11.5-14.5); WBC 6.1 10x3/uL (4.8-10.8)
[2020-01-01 07:11] LABS: ALBUMIN 2.7 g/dL (3.4-5.0); ALKALINE PHOSPHATASE 70 U/L (30-120); ALT (SGPT) 15 U/L (10-68); BILIRUBIN - TOTAL 0.21 mg/dL (0.2-1.3); CALC OSMOLALITY 284 mosm/kg (275-300); CALCIUM 9.1 mg/dL (8.5-10.1); CARBON DIOXIDE 30.7 mmol/L (21.0-32.0); CHLORIDE - SERUM 102 mmol/L (98-107); CREATININE - SERUM 0.8 mg/dL (0.6-1.3); GLUCOSE 245 mg/dL (74-106); POTASSIUM - SERUM 3.8 mmol/L (3.5-5.1); PROTEIN - SERUM 7.2 g/dL (6.4-8.2); SODIUM 139 mmol/L (136-145); UREA NITROGEN 9 mg/dL (7-18); eGFR NON AFRICAN AMERICAN 76 mL/min (90-120)
--- NOTE | 2020-01-01 09:02 | NUR ---
AM MEDS GIVEN. PT STATES SHE HAS NO FURTHER NEEDS AT THIS TIME. BED LOW. CL IN REACH. WILL CONTINUE WITH POC.
[2020-01-01 09:13] VITALS: BP 187/101
--- NOTE | 2020-01-01 12:53 | NUR ---
I have reviewed this patient and I concur with the Shift Assessment completed by the Licensed Practical Nurse today this shift.
[2020-01-01 13:12] VITALS: BP 171/87
[2020-01-01 16:54] VITALS: BP 152/57
--- NOTE | 2020-01-01 19:30 | NUR ---
REPORT RECEIVED AND ROUNDING COMPLETE. PATIENT LAYING IN BED WATCHING MOVIE ON HER CELL PHONE. NO DISTRESS NOTED AND PATIENT STATES NO NEEDS AT THIS TIME. PATIENT HAS A LEFT FOREARM PIV THAT IS SALINE LOCKED AT THIS TIME. CALL LIGHT WITHIN REACH AND BED IN LOWEST LOCKED POSITION.
[2020-01-01 20:00] VITALS: BP 151/70
[2020-01-02] VITALS: BP 179/59
[2020-01-02 04:00] VITALS: BP 153/66
[2020-01-02 08:19] LABS: BASOPHILS 0.6 % (0-2); EOSINOPHILS 2.4 % (0-7); HEMOGLOBIN 11.4 g/dL (12-16); LYMPHOCYTES 29.1 % (15-50); MCH 28.1 pg (26.0-34.0); MCHC 31.7 g/dL (31.0-37.0); MCV 88.7 fL (80.0-100.0); MEAN PLATELET VOLUME 9.1 fL (7.4-10.4); MONOCYTES 8.5 % (2-11); NEUTROPHILS 52.4 % (40-80); PLATELET COUNT 297 10x3/uL (130-400); RBC 4.06 10x6/uL (4.00-5.40); RDW 13.3 % (11.5-14.5); WBC 5.4 10x3/uL (4.8-10.8)
[2020-01-02 08:35] LABS: ALBUMIN 2.9 g/dL (3.4-5.0); ALKALINE PHOSPHATASE 71 U/L (30-120); ALT (SGPT) 17 U/L (10-68); BILIRUBIN - TOTAL 0.21 mg/dL (0.2-1.3); CALC OSMOLALITY 282 mosm/kg (275-300); CALCIUM 9.2 mg/dL (8.5-10.1); CARBON DIOXIDE 30.1 mmol/L (21.0-32.0); CHLORIDE - SERUM 103 mmol/L (98-107); CREATININE - SERUM 0.7 mg/dL (0.6-1.3); GLUCOSE 225 mg/dL (74-106); PROTEIN - SERUM 6.8 g/dL (6.4-8.2); SODIUM 139 mmol/L (136-145); UREA NITROGEN 8 mg/dL (7-18); eGFR NON AFRICAN AMERICAN 89 mL/min (90-120)
[2020-01-02 08:37] LABS: POTASSIUM - SERUM 4.4 mmol/L (3.5-5.1)
[2020-01-02 08:39] VITALS: BP 152/73
--- NOTE | 2020-01-02 10:53 | NUR ---
I have reviewed this patient and I concur with the Shift Assessment completed by the Licensed Practical Nurse today this shift.
[2020-01-02 12:00] VITALS: BP 122/77
[2020-01-02] MEDS ORDERED: NORVASC5 MG PO (12:46)
[2020-01-02] MEDS ORDERED: MACRODANTIN50 MG PO (12:50)
--- NOTE | 2020-01-02 13:33 | NUR ---
LEFT AC 20G IV DC'D WITH CATH INTACT. DISCHARGE INSTRUCTIONS GIVEN TO PT AND TEACHING DONE. PT HAS NO FURTHER QUESTIONS. CHART COPY SIGNED. PT CALLED DAUGHTER TO PICK HER UP.
--- NOTE | 2020-01-02 13:41 | MORECARE ---
CASE MANAGEMENT DISCHARGE SUMMARY PATIENT: ESTELA HILLIARD UNIT: [id number] ADM DATE: 12/25/19 AGE: 64 : 55 SEX: F ROOM/BED: D.2137 AUTHOR: BHUPINDER FERNANDES PHYSICIAN: REFERRING PHYSICIAN: ORLANDO YOUNG MD DATE OF SERVICE: 01/02/20 Discharge Plan Patient Name: ESTELA HILLIARD [facility] [facility] 1955 Planned Disposition: Home Anticipated Discharge Date: Discharge Date: Expected LOS: Initial Reviewer: [email or web address] Initial Review Date: 12/25/2019 Generated: 01/02/20 2:40 pm Patient Name: ESTELA HILLIARD Page [phone] at 1341 All edits/amendments must be made on the electronic document DICTATION DATE: 01/02/20 1340 WING COMMANDER: KAREN 01/02/20 1340 RPT#: [id number] DC DATE: STATUS: ADM IN [facility] [address] [place] [address] END OF REPORT
--- NOTE | 2020-01-02 13:50 | MORECARE ---
CASE MANAGEMENT DISCHARGE SUMMARY PATIENT: ESTELA HILLIARD UNIT: [id number] ADM DATE: 12/25/19 AGE: 64 : 55 SEX: F ROOM/BED: D.1318 AUTHOR: BHUPINDER FERNANDES PHYSICIAN: REFERRING PHYSICIAN: ORLANDO YOUNG MD DATE OF SERVICE: 01/02/20 Discharge Plan Patient Name: ESTELA HILLIARD Facility: [facility]:[place] : 1955 Planned Disposition: Home Anticipated Discharge Date: Discharge Date: Expected LOS: Initial Reviewer: [email or web address] Initial Review Date: 12/25/2019 Generated: 01/02/20 2:49 pm Comments DCP- Discharge Planning Updated by [email or web address]: Bernadette Schultz on 01/02/20 12:[address] Patient Name: ESTELA HILLIARD Admission Status: ER Accout number: [id number] Admission Date: 12-25-2019 : 1955 Admission Diagnosis:URINARY TRACT INFECTION, SITE NOT SPECIFIED Attending: ASIM Current LOS: 8 Anticipated DC Date: Planned Disposition: Home [facility] Discharge Planning Comments: CM met with patient to complete initial dc planning assessment. CM educated patient on the CM role and verbal consent given by patient to complete assessment. CM verified patient's address, phone number, and emergency contact phone numbers. Patient lives at home independently. At discharge patient plans to return home and feels this is a safe discharge. CM discussed availability of home health, rehab services, and medical equipment. Patient denied known discharge needs at this time. Transportation provider at discharge will be a family friend. CM will continue to follow and will assist as needed with dc plans/needs. Order Booker: Bernadette Schultz MSN,RN,CM Last DP export: 01/02/20 12:41 p Patient Name: ESTELA HILLIARD Page [id number] at 1350 All edits/amendments must be made on the electronic document DICTATION DATE: 01/02/20 1349 MANAGER DECISION SUPPORT: KAREN 01/02/20 1349 RPT#: [id number] DC DATE: STATUS: [facility] [address] [facility] [place] [address] END OF REPORT
--- NOTE | 2020-01-02 14:02 | NUR ---
PT TAKEN OUT VIA WC WITH ALL BELONGINGS BY MITZI AND LEFT WITH CARMEN IN DAUGHTER'S PERSONAL VEHICLE.
--- NOTE | 2020-01-04 11:39 | MORECARE ---
CASE MANAGEMENT DISCHARGE SUMMARY PATIENT: ESTELA HILLIARD UNIT: [id number] ADM DATE: 12/25/19 AGE: 64 : 55 SEX: F ROOM/BED: D.3185 AUTHOR: BHUPINDER FERNANDES PHYSICIAN: REFERRING PHYSICIAN: ORLANDO YOUNG MD DATE OF SERVICE: 01/04/20 Discharge Plan Patient Name: ESTELA HILLIARD Facility: [facility]:[place] : 1955 Planned Disposition: Home Anticipated Discharge Date: Discharge Date: 01/02/2020 Expected LOS: Initial Reviewer: [email or web address] Initial Review Date: 12/25/2019 Generated: 01/04/20 12:38 pm Comments DCP- Discharge Planning Updated by [email or web address]: Bernadette Schultz on 01/02/20 12:[address] Patient Name: ESTELA HILLIARD Admission Status: ER Accout number: [id number] Admission Date: 12-25-2019 : 1955 Admission Diagnosis:URINARY TRACT INFECTION, SITE NOT SPECIFIED Attending: ASIM Current LOS: 8 Anticipated DC Date: Planned Disposition: Home Primary Insurance: [employer] O POS Discharge Planning Comments: CM met with patient to complete initial dc planning assessment. CM educated patient on the CM role and verbal consent given by patient to complete assessment. CM verified patient's address, phone number, and emergency contact phone numbers. Patient lives at home independently. At discharge patient plans to return home and feels this is a safe discharge. CM discussed availability of home health, rehab services, and medical equipment. Patient denied known discharge needs at this time. Transportation provider at discharge will be a family friend. CM will continue to follow and will assist as needed with dc plans/needs. Harness Mender: Bernadette Schultz MSN,RN,CM Last DP export: 01/02/20 12:50 p Patient Name: ESTELA HILLIARD Page [phone] at 1139 All edits/amendments must be made on the electronic document DICTATION DATE: 01/04/20 1139 VOCATIONAL NURSE: KAREN 01/04/20 1139 RPT#: [id number] DC DATE:01/02/20 STATUS: DIS IN [facility] [address] [place] [address] END OF REPORT
== END 2020-01-02 14:02 | disposition home or self-care (01) | DRG 872 ==
LOC: D.ER 17:53 → D.M2 21:14
PROVIDERS: Family Medicine; ADMIT Family Medicine; ATTEND Family Medicine
DX: A41.9 Sepsis, unspecified organism (principal); N12 Tubulo-interstitial nephritis, not specified as acute or chronic; E87.1 Hypo-osmolality and hyponatremia; I50.32 Chronic diastolic (congestive) heart failure; N39.0 Urinary tract infection, site not specified; D64.9 Anemia, unspecified; E11.65 Type 2 diabetes mellitus with hyperglycemia; I11.0 Hypertensive heart disease with heart failure; C67.9 Malignant neoplasm of bladder, unspecified; F41.9 Anxiety disorder, unspecified

== ENCOUNTER 2020-03-03 14:01 | Emergency (ER) | payer OTHER ==
[2019-12-26 14:43] VITALS: Ht 157.5 cm
[~2020-03-03 14:01] MED LIST changes: +MACRODANTIN50 MG PO; +NORVASC5 MG PO
[2020-03-03 15:56] LABS: BASOPHILS 0.3 % (0-2); EOSINOPHILS 0 % (0-7); HEMOGLOBIN 13.4 g/dL (12-16); IMMATURE GRANULOCYTES 0.3 % (0-5); LYMPHOCYTES 7.4 % (15-50); MCHC 32.7 g/dL (31.0-37.0); MCV 85.6 fL (80.0-100.0); MEAN PLATELET VOLUME 8.9 fL (7.4-10.4); MONOCYTES 6.8 % (2-11); NEUTROPHILS 85.2 % (40-80); RBC 4.79 10x6/uL (4.00-5.40); RDW 13.3 % (11.5-14.5); WBC 7.8 10x3/uL (4.8-10.8)
[2020-03-03 15:57] LABS: PLATELET COUNT 175 10x3/uL (130-400)
[2020-03-03 16:09] LABS: ANION GAP 15.4 mmol/L (8-16); CALCIUM 9.6 mg/dL (8.5-10.1); CARBON DIOXIDE 24.4 mmol/L (21.0-32.0); POTASSIUM - SERUM 3.8 mmol/L (3.5-5.1)
[2020-03-03 16:15] LABS: BILIRUBIN - TOTAL 0.57 mg/dL (0.2-1.3); PROTEIN - SERUM 8.1 g/dL (6.4-8.2)
[2020-03-03 20:07] LABS: BILIRUBIN NEGATIVE (NEGATIVE); GLUCOSE 1000 mg/dL (NEGATIVE); KETONE LARGE mg/dL (NEGATIVE); NITRITE NEGATIVE (NEGATIVE); UROBILINOGEN NORMAL (NORMAL)
[2020-03-03 20:08] LABS: BACTERIA MANY /hpf (NEGATIVE); EPITHELIAL CELLS 0-5 /hpf (0-5); RED CELLS - URINE 0-5 /hpf (0-5); WHITE CELLS - URINE 25-50 /hpf (NEGATIVE)
[2020-03-03] MEDS ORDERED: ZOFRAN ODT4 MG/UDTAB PO (21:07)
[2020-03-03] MEDS ORDERED: VOLTAREN25 MG PO (21:07)
[2020-03-03] MEDS ORDERED: KEFLEX500 MG PO (21:07)
[2020-03-03 21:41] VITALS: BP 102/58
== END 2020-03-03 21:41 | disposition home or self-care (01) ==
LOC: D.ER 14:01
PROVIDERS: Family Medicine
DX: N39.0 Urinary tract infection, site not specified (principal); R11.0 Nausea; E11.9 Type 2 diabetes mellitus without complications; Z79.84 Long term (current) use of oral hypoglycemic drugs

== ENCOUNTER 2020-09-27 14:47 | Emergency (ER) | payer MEDICARE ==
[~2020-09-27] VITALS: Ht 157.5 cm; Wt 81.8 kg
[~2020-09-27 14:47] MED LIST changes: +KEFLEX500 MG PO; +NAPROXEN250 MG PO; +VOLTAREN25 MG PO; +ZOFRAN ODT4 MG/UDTAB PO
[2020-09-27 14:55] VITALS: Ht 157.5 cm; Wt 81.8 kg
[2020-09-27 16:27] LABS: BASOPHILS 0.2 % (0-2); EOSINOPHILS 0.1 % (0-7); HEMATOCRIT 39.2 % (36.0-48.0); IMMATURE GRANULOCYTES 0.2 % (0-5); LYMPHOCYTE ABS# 0.99 10x3/uL (1.18-3.74); MCH 28.8 pg (26.0-34.0); MCHC 33.2 g/dL (31.0-37.0); MCV 86.7 fL (80.0-100.0); MEAN PLATELET VOLUME 8.6 fL (7.4-10.4); NEUTROPHIL ABS# 7.31 10x3/uL (1.56-6.13); NEUTROPHILS 81.5 % (40-80); PLATELET COUNT 198 10x3/uL (130-400); RBC 4.52 10x6/uL (4.00-5.40); RDW 12.3 % (11.5-14.5)
[2020-09-27 16:43] LABS: CALC OSMOLALITY 267 mosm/kg (275-300); CALCIUM 9.3 mg/dL (8.5-10.1); CARBON DIOXIDE 23.8 mmol/L (21.0-32.0); CHLORIDE - SERUM 96 mmol/L (98-107); CREATININE - SERUM 0.8 mg/dL (0.6-1.3); POTASSIUM - SERUM 4.2 mmol/L (3.5-5.1); SODIUM 129 mmol/L (136-145); UREA NITROGEN 11 mg/dL (7-18); eGFR NON AFRICAN AMERICAN 76 mL/min (90-120)
[2020-09-27 16:48] LABS: GLUCOSE 286 mg/dL (74-106)
[2020-09-27 16:51] LABS: ALBUMIN 3.5 g/dL (3.4-5.0); ALKALINE PHOSPHATASE 103 U/L (30-120); ALT (SGPT) 17 U/L (10-68); PROTEIN - SERUM 8.3 g/dL (6.4-8.2)
[2020-09-27 16:56] LABS: BILIRUBIN NEGATIVE (NEGATIVE); KETONE MODERATE mg/dL (NEGATIVE); NITRITE POSITIVE (NEGATIVE); UROBILINOGEN NORMAL mg/dL (< 2)
[2020-09-27 16:57] LABS: BACTERIA MANY HPF (NONE SEEN); SQUAMOUS EPITHELIAL 0-5 HPF (0-4); WHITE CELLS - URINE >50 HPF (0-4)
[2020-09-27] MEDS ORDERED: ZOFRAN ODT4 MG/UDTAB PO (18:51)
[2020-09-27] MEDS ORDERED: MACROBID100 MG PO (18:51)
[2020-09-27 19:30] VITALS: BP 166/95
== END 2020-09-27 19:31 | disposition home or self-care (01) ==
LOC: D.ER 14:47
PROVIDERS: Emergency Medicine
DX: N39.0 Urinary tract infection, site not specified (principal); E11.9 Type 2 diabetes mellitus without complications; Z79.4 Long term (current) use of insulin

== ENCOUNTER 2020-12-11 23:46 | Emergency (ER) | payer MEDICARE ==
[~2020-12-11] VITALS: Ht 157.5 cm; Wt 88.2 kg
[~2020-12-11 23:46] MED LIST changes: +MACROBID100 MG PO
[2020-12-11 23:50] VITALS: Ht 157.5 cm; Wt 88.2 kg
[2020-12-12 01:05] LABS: BILIRUBIN NEGATIVE (NEGATIVE); KETONE SMALL mg/dL (NEGATIVE); NITRITE NEGATIVE (NEGATIVE); UROBILINOGEN NORMAL mg/dL (< 2)
[2020-12-12 01:06] LABS: BACTERIA MODERATE HPF (NONE SEEN); SQUAMOUS EPITHELIAL 0-5 HPF (0-4)
[2020-12-12 02:37] LABS: BASOPHILS 0.6 % (0-2); EOSINOPHILS 1.3 % (0-7); HEMATOCRIT 42.2 % (36.0-48.0); HEMOGLOBIN 13.9 g/dL (12-16); LYMPHOCYTES 24.1 % (15-50); MCHC 33.1 g/dL (31.0-37.0); MCV 84.7 fL (80.0-100.0); MEAN PLATELET VOLUME 7.8 fL (7.4-10.4); MONOCYTES 6.8 % (2-11); NEUTROPHILS 67.2 % (40-80); PLATELET COUNT 225 10x3/uL (130-400); RBC 4.98 10x6/uL (4.00-5.40); RDW 14.4 % (11.5-14.5); WBC 7.5 10x3/uL (4.8-10.8)
[2020-12-12 02:46] LABS: ALBUMIN 3.8 g/dL (3.4-5.0); ALKALINE PHOSPHATASE 158 U/L (30-120); ALT (SGPT) 23 U/L (10-68); BILIRUBIN - TOTAL 0.32 mg/dL (0.2-1.3); CALC OSMOLALITY 283 mosm/kg (275-300); CALCIUM 9.4 mg/dL (8.5-10.1); CHLORIDE - SERUM 97 mmol/L (98-107); CREATININE - SERUM 0.8 mg/dL (0.6-1.3); PROTEIN - SERUM 8.2 g/dL (6.4-8.2); SODIUM 133 mmol/L (136-145); UREA NITROGEN 15 mg/dL (7-18); eGFR NON AFRICAN AMERICAN 76 mL/min (90-120)
[2020-12-12 03:00] LABS: GLUCOSE 407 mg/dL (74-106)
[2020-12-12] MEDS ORDERED: FLUCONAZOLE150 MG PO (04:40)
[2020-12-12] MEDS ORDERED: BACTRIM DS TAB1 EAC1 PO (04:40)
[2020-12-12 04:58] VITALS: BP 169/95
== END 2020-12-12 04:58 | disposition home or self-care (01) ==
LOC: D.ER 23:46
PROVIDERS: Emergency Medicine
DX: N39.0 Urinary tract infection, site not specified (principal); M54.9 Dorsalgia, unspecified; E11.65 Type 2 diabetes mellitus with hyperglycemia; N76.0 Acute vaginitis; Z79.84 Long term (current) use of oral hypoglycemic drugs